=== PATIENT | male | born 1950 | race Caucasian/White ===

== ENCOUNTER 2020-10-04 10:55 | Emergency (ER) | payer MEDICARE, OTHER ==
--- NOTE | 2020-10-04 11:22 | EDM.PDOC ---
ED HPI GENERAL MEDICAL PROBLEM - General Chief Complaint: Neuro Symptoms/Deficits Stated Complaint: HEADACHE Time Seen by Provider: 10/04/20 10:55 - History of Present Illness INITIAL COMMENTS - FREE TEXT/NARRATIVE: 70-year-old male presents the emergency room with headaches. These headaches been going on for couple of months it seems like but have been getting worse over the last couple of weeks. Over the last several days however the patient has had difficulty with ambulation he is had less coordination with difficulty walking. He has some neck discomfort right at the base of the skull seems to be worse on the left side. About an hour prior to arrival here the patient developed some double vision. Double vision seems to be with far objects does not seem to affect him up close he describes seeing 2 cars coming out of him onto roadways. But when the cars passed there was just a single car. The patient has not had problems with double vision in the exam room. The patient cannot identify any weakness right side compared to the left or vice versa in upper or lower extremities. He has not had any change in his speech. The patient just has not been himself he has had no energy over the last several days as well. The patient's had episodes where he has been sweaty yesterday was found to have a fever of 103.4 but he had just come inside after moving hay. Headache Pain Score (Numeric/FACES): 8 - Related Data Allergies Allergy/AdvReac Type Severity Reaction Status Date / Time No Known Allergies Allergy Verified 10/04/20 11:14 Home Meds: Home Meds Benazepril [Lotensin] 20 mg PO QAM 10/04/20 [History] Gabapentin [Neurontin] 300 mg PO BEDTIME 10/04/20 [History] Ibuprofen [Advil] 200 mg PO DAILY PRN 10/04/20 [History] Metoprolol Succinate 25 mg PO QAM 10/04/20 [History] Pramipexole [Mirapex] 0.5 mg PO BEDTIME 10/04/20 [History] amLODIPine [Norvasc] 2.5 mg PO QAM 10/04/20 [History] diazePAM [Valium] 2 mg PO BEDTIME #15 tab 10/04/20 [Rx] ED ROS GENERAL - Review of Systems Review Of Systems: See Below Constitutional: Reports: Weakness, Fatigue, Diaphoresis HEENT: Reports: No Symptoms Respiratory: Reports: No Symptoms Cardiovascular: Reports: No Symptoms Endocrine: Reports: Fatigue GI/Abdominal: Reports: No Symptoms : Reports: No Symptoms Musculoskeletal: Reports: Neck Pain Skin: Reports: No Symptoms Neurological: Reports: Confusion, Headache, Numbness. Denies: Seizure, Syncope Psychiatric: Reports: No Symptoms Hematologic/Lymphatic: Reports: No Symptoms Immunologic: Reports: No Symptoms ED EXAM, NEURO - Physical Exam Exam: See Below Exam Limited By: No Limitations General Appearance: Alert, No Apparent Distress Eye Exam: Bilateral Eye: EOMI, Normal Inspection, PERRL Ears: Normal External Exam, Normal Canal, Hearing Grossly Normal, Normal TMs Nose: Normal Inspection, Normal Mucosa, No Blood Throat/Mouth: Normal Inspection, Normal Lips, Normal Teeth, Normal Gums, Normal Oropharynx, Normal Voice, No Airway Compromise Head Exam: Atraumatic, Normocephalic Neck: Normal Inspection, Supple, Non-Tender, Full Range of Motion, Other (He has some muscle tightness at the base of the skull in the left paraspinous muscle insertion area). No: Lymphadenopathy (L), Lymphadenopathy (R), Tender Midline Respiratory/Chest: No Respiratory Distress, Lungs Clear, Normal Breath Sounds Cardiovascular: Regular Rate, Rhythm, No Edema, No Murmur GI/Abdominal: Normal Bowel Sounds, Soft, Non-Tender Neurological: Alert, Normal Mood/Affect, Normal Dorsiflexion, CN II-XII Intact, No Motor/Sensory Deficits, Other (Radial nerves II through XII grossly intact all muscle groups are equal and appropriate in the upper and lower extremities bilaterally. Deep tendon reflexes at the brachial radialis are equal and appropriate bilaterally) Back Exam: Normal Inspection. No: CVA Tenderness (L), CVA Tenderness (R) Extremities: Normal Inspection, Normal Range of Motion, Non-Tender, No Pedal Edema Psychiatric: Normal Affect, Normal Mood #1 Interpretation EKG Date: 10/04/20 Rhythm: NSR [place]: Normal P-Wave: Present QRS: Other (Fairly normal QRS borderline Q waves in leads III and aVF, early transition) ST-T: Normal QT: Normal Comparison: NA - No Prior EKG EKG Interpretation Comments: Abnormal EKG Course - Vital Signs Last Recorded V/S: Last Vital Signs Temp 37.3 C 10/04/20 11:14 Pulse 78 10/04/20 11:14 Resp 14 10/04/20 11:14 BP 136/75 10/04/20 11:14 Pulse Ox 98 10/04/20 11:14 - Orders/Labs/Meds Orders: Active Orders 24 hr Category Date Time Status EKG Documentation Completion [RC] STAT Care 10/04/20 11:17 Active Sodium Chloride 0.9% [Saline Flush] Med 10/04/20 15:15 Active 20 ml FLUSH ASDIRECTED Medication Orders Sodium Chloride (Sodium Chloride 0.9% 10 Ml Syringe) 20 ml FLUSH ASDIRECTED VIKTOR Last Admin: 10/04/20 15:22 Dose: 20 ml Documented by: RADHA Labs: Laboratory Tests 10/04/20 10/04/20 10/04/20 Range/Units 11:10 11:10 11:10 WBC 4.55 (4.23-9.07) K/mm3 RBC 5.00 (4.63-6.08) M/mm3 Hgb 15.5 (13.7-17.5) gm/dl Hct 46.8 (40.1-51.0) % MCV 93.6 H (79.0-92.2) fl MCH 31.0 (25.7-32.2) pg MCHC 33.1 (32.2-35.5) g/dl RDW Std Deviation 44.4 H (35.1-43.9) fL Plt Count 119 L (163-337) K/mm3 MPV 10.0 (9.4-12.3) fl Neutrophils % (Manual) 43 (40-60) % Band Neutrophils % 0 (0-10) % Lymphocytes % (Manual) 34 (20-40) % Atypical Lymphs % 5 % Monocytes % (Manual) 16 H (2-10) % Eosinophils % (Manual) 2 (0.8-7.0) % Basophils % (Manual) 0 L (0.2-1.2) Platelet Estimate Decreased Plt Morphology Comment Normal RBC Morph Comment Normal PT 11.1 (9.7-12.0) SECONDS INR 1.04 APTT 35.1 H (21.7-31.4) SECONDS Sodium 139 (136-145) mEq/L Potassium 4.3 (3.5-5.1) mEq/L Chloride 102 (98-107) mEq/L Carbon Dioxide 29 (21-32) mEq/L Anion Gap 12.3 (5-15) BUN 18 (7-18) mg/dL Creatinine 1.3 (0.7-1.3) mg/dL Est Cr Clr Drug Dosing 48.73 mL/min Estimated GFR (MDRD) 54 (>60) mL/min BUN/Creatinine Ratio 13.8 L (14-18) Glucose 101 H (70-99) mg/dL POC Glucose (70-99) mg/dL Calcium 8.5 (8.5-10.1) mg/dL Total Bilirubin 0.5 (0.2-1.0) mg/dL AST 67 H (15-37) U/L ALT 79 H (16-63) U/L Alkaline Phosphatase 102 (46-116) U/L Troponin I < 0.017 (0.00-0.056) ng/mL Total Protein 7.2 (6.4-8.2) g/dl Albumin 3.4 (3.4-5.0) g/dl Globulin 3.8 gm/dL Albumin/Globulin Ratio 0.9 L (1-2) TSH 3rd Generation (0.358-3.74) uIU/mL SARS-CoV-2 RNA (ALEJANDRO) (NEGATIVE) 10/04/20 10/04/20 10/04/20 Range/Units 11:10 11:11 11:43 WBC (4.23-9.07) K/mm3 RBC (4.63-6.08) M/mm3 Hgb (13.7-17.5) gm/dl Hct (40.1-51.0) % MCV (79.0-92.2) fl MCH (25.7-32.2) pg MCHC (32.2-35.5) g/dl RDW Std Deviation (35.1-43.9) fL Plt Count (163-337) K/mm3 MPV (9.4-12.3) fl Neutrophils % (Manual) (40-60) % Band Neutrophils % (0-10) % Lymphocytes % (Manual) (20-40) % Atypical Lymphs % % Monocytes % (Manual) (2-10) % Eosinophils % (Manual) (0.8-7.0) % Basophils % (Manual) (0.2-1.2) Platelet Estimate Plt Morphology Comment RBC Morph Comment PT (9.7-12.0) SECONDS INR APTT (21.7-31.4) SECONDS Sodium (136-145) mEq/L Potassium (3.5-5.1) mEq/L Chloride (98-107) mEq/L Carbon Dioxide (21-32) mEq/L Anion Gap (5-15) BUN (7-18) mg/dL Creatinine (0.7-1.3) mg/dL Est Cr Clr Drug Dosing mL/min Estimated GFR (MDRD) (>60) mL/min BUN/Creatinine Ratio (14-18) Glucose (70-99) mg/dL POC Glucose 82 (70-99) mg/dL Calcium (8.5-10.1) mg/dL Total Bilirubin (0.2-1.0) mg/dL AST (15-37) U/L ALT (16-63) U/L Alkaline Phosphatase (46-116) U/L Troponin I (0.00-0.056) ng/mL Total Protein (6.4-8.2) g/dl Albumin (3.4-5.0) g/dl Globulin gm/dL Albumin/Globulin Ratio (1-2) TSH 3rd Generation 1.422 (0.358-3.74) uIU/mL SARS-CoV-2 RNA (ALEJANDRO) Positive H (NEGATIVE) Meds: Medications Generic Name Dose Route Start Last Admin Trade Name Freq PRN Reason Stop Dose Admin Sodium Chloride 20 ml 10/04/20 15:15 10/04/20 15:22 Sodium Chloride 0.9% 10 Ml Syringe FLUSH 20 ml ASDIRECTED VIKTOR Administration Discontinued Medications Generic Name Dose Route Start Last Admin Trade Name Freq PRN Reason Stop Dose Admin Hydrocodone Bitart/Acetaminophen 1 tab 10/04/20 13:09 10/04/20 13:20 Acetaminophen/Hydrocodone 325-10 Mg Tab PO 10/04/20 13:10 1 tab ONETIME ONE Administration Gadobenate Dimeglumine 17 ml 10/04/20 15:02 10/04/20 15:22 Gadobenate Dimeglumine 529 Mg/Ml 20 Ml Sdv IVPUSH 10/04/20 15:03 17 ml ONETIME ONE Administration - Re-Assessments/Exams Free Text/Narrative Re-Assessment/Exam: 10/04/20 12:21 NIH stroke score of [address] no acute intracranial changes mild mucosal thickening within the ethmoid sinuses. We are awaiting MRI that cannot be done until about 130. 10/04/20 13:15 Patient's Covid came back positive. I did discuss situation with Dr. Paula, neurologist at [facility] in [place] he recommends following through with the MRI with and without and checking an MRV to exclude venous thrombosis with positive Covid status. Discussed all this with the patient. And discussed the possibility of monoclonal antibody therapy. He will think about it. 10/04/20 16:23 Patient would like to hold off on Regeneron at this time. MRI of the brain does not show any acute stroke or TIA findings there is minimal areas of increased signal within portions of the periventricular and subcortical white matter which most likely represent minimal small vessel ischemic demyelination change. MRI venogram is negative. At this point we discussed the pros and cons of staying in the hospital versus discharge and he would like to be discharged home. Departure - Departure Time of Disposition: 16:24 Disposition: Home, Self-Care 01 Clinical Impression: COVID-19, Weakness, Tension headache - Discharge Information Prescriptions: diazePAM [Valium] 2 mg PO BEDTIME #15 tab Instructions: COVID-19 Frequently Asked Questions, COVID-19, Weakness, [id number] Referrals: PCP,Not In Area [Primary Care Provider] - Forms: ED Department Discharge Additional Instructions: Return to the emergency room with any questions problems or worsening symptoms. You were found to be Covid positive you need to be self isolated for the next week. For your tension headache she was started on Valium. Take this 1 hour before bedtime. Because of it having increased sedation effects in combination with the gabapentin were starting a very light dose 2 mg. If you tolerate the 2 mg and you are not getting adequate improvement you may increase to 2 tablets 1 hour before bedtime. Sepsis Event Note (ED) - Focused Exam Vital Signs: Vital Signs Temp Pulse Resp BP Pulse Ox 10/04/20 11:14 37.3 C 78 14 136/75 98 - My Orders Last 24 Hours: My Active Orders 10/04/20 11:17 EKG Documentation Completion [RC] STAT 10/04/20 15:15 Sodium Chloride 0.9% [Saline Flush] 20 ml FLUSH ASDIRECTED - Assessment/Plan Last 24 Hours: My Active Orders 10/04/20 11:17 EKG Documentation Completion [RC] STAT 10/04/20 15:15 Sodium Chloride 0.9% [Saline Flush] 20 ml FLUSH ASDIRECTED
--- NOTE | 2020-10-04 11:36 | CT ---
Head CT Technique: Multiple axial sections through the brain were obtained. Intravenous contrast was not utilized. Reconstructed coronal and sagittal images were obtained. Comparison: No prior intracranial imaging is available. Findings: Ventricles along with basal cisterns and sulci over the convexities are within normal limits for the patient's age. No abnormal parenchymal densities are seen. No evidence of intracranial hemorrhage is seen. No midline shift or mass-effect is seen. Bone window settings were reviewed. Mild mucosal thickening is seen within the ethmoid sinuses. Mastoid sinuses show nothing acute. No acute calvarial abnormality is appreciated. Impression: 1. Minimal sinus findings which are believed to be incidental. 2. Nothing acute is appreciated on noncontrast head CT study. 3. If patient's symptoms warrant further evaluation, consider brain MRI to further evaluate. Diagnostic code #2
[2020-10-04] MEDS ORDERED: Acetaminophen/HYDROcodone 325-10 MG Tab PO ONE (13:09)
[2020-10-04] MEDS ORDERED: Gadobenate Dimeglumine 529 MG/ML 20 ML SDV IVPUSH ONE (15:02)
[2020-10-04] MEDS ORDERED: Sodium Chloride 0.9% 10 ML Syringe FLUSH SCH (15:15)
--- NOTE | 2020-10-04 15:28 | MR ---
MRI venogram Technique: Noncontrast venogram study was obtained of the intracranial veins. Reconstructed MIP images were obtained. Findings: Both transverse sinuses are patent. Superior sagittal sinus is patent. Inferior sagittal sinus is patent. Small cortical veins appear within normal limits. Impression: 1. No abnormality is identified on venogram study of the intracranial veins. Diagnostic code #1
--- NOTE | 2020-10-04 15:45 | MR ---
MRI brain (without and with intravenous contrast) Technique: T1 sagittal; T2, T2 FLAIR, T1 and diffusion axial; T1 and T2 gradient echo coronal; postcontrast T1 axial and postcontrast T1 coronal images were obtained. Comparison: Prior venogram study performed on the same day as well as prior head CT exam performed on the same day. Findings: No acute diffusion abnormalities are seen. Ventricles along with basal cisterns and sulci over the convexities are within normal limits for the patient's age. Normal signal void is seen within the major cerebral arteries within the skull base. Minimal areas of increased signal are scattered within the periventricular and subcortical white matter. This is most likely due to minimal small vessel ischemic demyelination change. No other abnormal signal is seen within the brain parenchyma. No abnormal enhancement is seen. Impression: 1. Minimal areas of increased signal within portions of the periventricular and subcortical white matter which most likely represents minimal small vessel ischemic demyelination change. 2. Other portions of the MRI study of the brain appear within normal limits. There is specifically no evidence of abnormal diffusion or abnormal enhancement. Diagnostic code #2
== END 2020-10-04 17:00 | disposition home or self-care (01) ==
LOC: JD.ED 10:55
DX: U07.1 COVID-19 (principal); G44.209 Tension-type headache, unspecified, not intractable; R94.31 Abnormal electrocardiogram [ECG] [EKG]; Z79.899 Other long term (current) drug therapy
CPT/HCPCS: 36415; 70450; 70544; 70553; 80053; 82947; 84443; 84484; 85007; 85027; 85610; 85730; 93005; 99284; A9270; A9577; U0002; 93010

== ENCOUNTER 2020-10-07 06:56 | Inpatient (IN) | payer MEDICARE, OTHER ==
[2020-10-07] MEDS ORDERED: Sodium Chloride 0.9% 10 ML Syringe FLUSH PRN (07:47)
[2020-10-07] MEDS ORDERED: Metoclopramide 10 MG/2 ML SDV IVPUSH ONE (07:47)
[2020-10-07] MEDS ORDERED: diphenhydrAMINE 50 MG/ML SDV IVPUSH ONE (07:49)
[2020-10-07] MEDS ORDERED: Ketorolac 30 MG/ML SDV IVPUSH ONE (07:49)
--- NOTE | 2020-10-07 07:57 | EDM.PDOC ---
ED HPI GENERAL MEDICAL PROBLEM - General Chief Complaint: Headache Stated Complaint: COVID +/HEADACHE Time Seen by Provider: 10/07/20 07:16 Source of Information: Reports: Patient History Limitations: Reports: No Limitations - History of Present Illness INITIAL COMMENTS - FREE TEXT/NARRATIVE: The patient presents with a headache. He says this has been an ongoing problems for about 5 months. The headaches have been worse over the past few days and a few days ago he was off balance and had some confusion. He was seen here [address] of his head was done and then the ER provider called [facility] and talked with the neurologist and he recommended a MRI of his brain and MRA. That all looked good. He was found to be COVID positive. He had a fever or 103 at home. He has some shortness of breath and cough. He also has nausea and no appetite. He has generalized weakness and fatigue. He has a history of hypertension. He has been to see his doctor and chiropractor for these headaches and nothing is helping. Onset: Gradual Duration: Week(s): Location: Reports: Head Quality: Reports: Sharp Severity: Severe Improves with: Reports: None Worsens with: Reports: None Associated Symptoms: Reports: Cough, Fever/Chills, Headaches, Nausea/Vomiting. Denies: Chest Pain, Shortness of Breath Headache Pain Score (Numeric/FACES): 5 - Related Data Allergies Allergy/AdvReac Type Severity Reaction Status Date / Time No Known Allergies Allergy Verified 10/04/20 11:14 Home Meds: Home Meds Benazepril [Lotensin] 20 mg PO QAM 10/04/20 [History] Gabapentin [Neurontin] 300 mg PO BEDTIME 10/04/20 [History] Ibuprofen [Advil] 200 mg PO DAILY PRN 10/04/20 [History] Metoprolol Succinate 25 mg PO QAM 10/04/20 [History] Pramipexole [Mirapex] 0.5 mg PO BEDTIME 10/04/20 [History] amLODIPine [Norvasc] 2.5 mg PO QAM 10/04/20 [History] diazePAM [Valium] 2 mg PO BEDTIME #15 tab 10/04/20 [Rx] Past Medical History Cardiovascular History: Reports: Hypertension Respiratory History: Reports: Other (See Below) Other Respiratory History: +) COVID Genitourinary History: Reports: Renal Calculus Musculoskeletal History: Reports: Arthritis Neurological History: Reports: Headaches, Chronic, Head Trauma, Migraines - Infectious Disease History Infectious Disease History: Reports: Mumps, Novel Coronavirus - Past Surgical History GI Surgical History: Reports: Appendectomy, Cholecystectomy Male Surgical History: Reports: Lithotripsy ([facility]) Musculoskeletal Surgical History: Reports: Knee Replacement Social & Family History - Family History Family Medical History: No Pertinent Family History - Tobacco Use Tobacco Use Status *Q: Never Tobacco User Second Hand Smoke Exposure: No - Caffeine Use Caffeine Use: Reports: Coffee - Recreational Drug Use Recreational Drug Use: No ED ROS GENERAL - Review of Systems Review Of Systems: See Below Constitutional: Reports: Fever, Chills, Malaise, Weakness, Fatigue HEENT: Reports: No Symptoms Respiratory: Reports: Shortness of Breath, Cough Cardiovascular: Reports: No Symptoms Endocrine: Reports: Fatigue GI/Abdominal: Reports: Nausea. Denies: Abdominal Pain, Diarrhea, Vomiting : Reports: No Symptoms Musculoskeletal: Reports: No Symptoms - Physical Exam Exam: See Below Exam Limited By: No Limitations General Appearance: Alert, No Apparent Distress Ears: Normal External Exam Nose: Normal Inspection Head Exam: Atraumatic, Normocephalic Neck: Normal Inspection Respiratory/Chest: No Respiratory Distress, Lungs Clear, Normal Breath Sounds Cardiovascular: Regular Rate, Rhythm, No Edema, No Murmur GI/Abdominal: Soft, Non-Tender, No Organomegaly, No Mass Neuro Exam (Abbreviated): Alert, Oriented, No Motor/Sensory Deficits #1 Interpretation EKG Date: 10/07/20 Time: 07:24 Rhythm: NSR Rate (Beats/Min): 71 [place]: LAD-Left [place] Deviation P-Wave: Present QRS: Normal ST-T: Normal QT: Normal EKG Interpretation Comments: Q waves in the inferior leads Course - Vital Signs Last Recorded V/S: Last Vital Signs Temp 97.8 F 10/07/20 09:15 Pulse 84 10/07/20 09:15 Resp 24 H 10/07/20 09:15 BP 115/66 10/07/20 09:15 Pulse Ox 95 10/07/20 09:15 - Orders/Labs/Meds Orders: Active Orders 24 hr Category Date Time Status Cardiac Monitoring [RC] . DIRECTED Care 10/07/20 07:47 Active EKG 12 Lead [EKG Documentation Completion] [RC] STAT Care 10/07/20 07:25 Active Oxygen Therapy [RC] PRN Care 10/07/20 07:47 Active Peripheral IV Care [RC] . DIRECTED Care 10/07/20 07:48 Active Chest 1V Frontal [CR] Stat Exams 10/07/20 07:48 Taken CULTURE BLOOD [BC] Stat Lab 10/07/20 08:20 Received CULTURE BLOOD [BC] Stat Lab 10/07/20 08:30 Received HEPATIC FUNCTION PANEL,HFP [CHEM] DAILY Lab 10/08/20 10:30 Ordered HEPATIC FUNCTION PANEL,HFP [CHEM] DAILY Lab 10/09/20 10:30 Ordered HEPATIC FUNCTION PANEL,HFP [CHEM] DAILY Lab 10/10/20 10:30 Ordered HEPATIC FUNCTION PANEL,HFP [CHEM] DAILY Lab 10/11/20 10:30 Ordered HEPATIC FUNCTION PANEL,HFP [CHEM] Stat Lab 10/07/20 10:20 Ordered HYDROmorphone [Dilaudid] Med 10/07/20 10:20 Once 0.5 mg IVPUSH ONETIME ONE Remdesivir 200 mg Med 10/07/20 10:20 Ordered Sodium Chloride 0.9% [Normal Saline] 250 ml IV ONETIME Sodium Chloride 0.9% [Normal Saline] 1,000 ml Med 10/07/20 08:45 Active IV ASDIRECTED Sodium Chloride 0.9% [Saline Flush] Med 10/07/20 07:47 Active 10 ml FLUSH ASDIRECTED PRN dexAMETHasone [Decadron] Med 10/07/20 10:20 Once 6 mg IVPUSH ONETIME ONE Blood Culture x2 Reflex Set [OM.PC] Stat Oth 10/07/20 08:38 Ordered ED Antiemetic Medication Reflex [OM.PC] Stat Oth 10/07/20 07:48 Ordered Peripheral IV Insertion Adult [OM.PC] Stat Oth 10/07/20 07:47 Ordered Medication Orders Sodium Chloride (Normal Saline) 1,000 mls @ 150 mls/hr IV ASDIRECTED VIKTOR Last Admin: 10/07/20 09:00 Dose: 150 mls/hr Documented by: [place]ER[place] Sodium Chloride (Sodium Chloride 0.9% 10 Ml Syringe) 10 ml FLUSH ASDIRECTED PRN PRN Reason: Keep Vein Open Last Admin: 10/07/20 08:26 Dose: 10 ml Documented by: [facility] Labs: Laboratory Tests 10/07/20 10/07/20 10/07/20 Range/Units 08:20 08:20 08:20 WBC 4.65 (4.23-9.07) K/mm3 RBC 5.04 (4.63-6.08) M/mm3 Hgb 15.5 (13.7-17.5) gm/dl Hct 46.8 (40.1-51.0) % MCV 92.9 H (79.0-92.2) fl MCH 30.8 (25.7-32.2) pg MCHC 33.1 (32.2-35.5) g/dl RDW Std Deviation 43.8 (35.1-43.9) fL Plt Count 125 L (163-337) K/mm3 MPV 10.1 (9.4-12.3) fl Neut % (Auto) 71.6 H (34.0-67.9) % Lymph % (Auto) 18.1 L (21.8-53.1) % [place] % (Auto) 9.9 (5.3-12.2) % Eos % (Auto) 0 L (0.8-7.0) Baso % (Auto) 0.2 (0.1-1.2) % Neut # (Auto) 3.33 (1.78-5.38) K/mm3 Lymph # (Auto) 0.84 L (1.32-3.57) K/mm3 [place] # (Auto) 0.46 (0.30-0.82) K/mm3 Eos # (Auto) 0.00 L (0.04-0.54) K/mm3 Baso # (Auto) 0.01 (0.01-0.08) K/mm3 PT 11.3 (9.7-12.0) SECONDS INR 1.06 APTT 35.0 H (21.7-31.4) SECONDS D-Dimer, Quantitative 1.33 H (0.19-0.50) mg/L Sodium 137 (136-145) mEq/L Potassium 4.4 (3.5-5.1) mEq/L Chloride 99 (98-107) mEq/L Carbon Dioxide 29 (21-32) mEq/L Anion Gap 13.4 (5-15) BUN 19 H (7-18) mg/dL Creatinine 1.3 (0.7-1.3) mg/dL Est Cr Clr Drug Dosing 48.73 mL/min Estimated GFR (MDRD) 54 (>60) mL/min BUN/Creatinine Ratio 14.6 (14-18) Glucose 118 H (70-99) mg/dL Lactic Acid (0.4-2.0) mmol/L Calcium 8.7 (8.5-10.1) mg/dL Ferritin (26-388) ng/ml Total Bilirubin 0.6 (0.2-1.0) mg/dL AST 72 H (15-37) U/L ALT 71 H (16-63) U/L Alkaline Phosphatase 123 H (46-116) U/L Lactate Dehydrogenase 435 H (85-227) U/L Troponin I < 0.017 (0.00-0.056) ng/mL C-Reactive Protein 19.5 H* (<1.0) mg/dL Total Protein 7.2 (6.4-8.2) g/dl Albumin 3.2 L (3.4-5.0) g/dl Globulin 4.0 gm/dL Albumin/Globulin Ratio 0.8 L (1-2) 10/07/20 10/07/20 Range/Units 08:20 08:20 WBC (4.23-9.07) K/mm3 RBC (4.63-6.08) M/mm3 Hgb (13.7-17.5) gm/dl Hct (40.1-51.0) % MCV (79.0-92.2) fl MCH (25.7-32.2) pg MCHC (32.2-35.5) g/dl RDW Std Deviation (35.1-43.9) fL Plt Count (163-337) K/mm3 MPV (9.4-12.3) fl Neut % (Auto) (34.0-67.9) % Lymph % (Auto) (21.8-53.1) % [place] % (Auto) (5.3-12.2) % Eos % (Auto) (0.8-7.0) Baso % (Auto) (0.1-1.2) % Neut # (Auto) (1.78-5.38) K/mm3 Lymph # (Auto) (1.32-3.57) K/mm3 [place] # (Auto) (0.30-0.82) K/mm3 Eos # (Auto) (0.04-0.54) K/mm3 Baso # (Auto) (0.01-0.08) K/mm3 PT (9.7-12.0) SECONDS INR APTT (21.7-31.4) SECONDS D-Dimer, Quantitative (0.19-0.50) mg/L Sodium (136-145) mEq/L Potassium (3.5-5.1) mEq/L Chloride (98-107) mEq/L Carbon Dioxide (21-32) mEq/L Anion Gap (5-15) BUN (7-18) mg/dL Creatinine (0.7-1.3) mg/dL Est Cr Clr Drug Dosing mL/min Estimated GFR (MDRD) (>60) mL/min BUN/Creatinine Ratio (14-18) Glucose (70-99) mg/dL Lactic Acid 1.1 (0.4-2.0) mmol/L Calcium (8.5-10.1) mg/dL Ferritin 908 H (26-388) ng/ml Total Bilirubin (0.2-1.0) mg/dL AST (15-37) U/L ALT (16-63) U/L Alkaline Phosphatase (46-116) U/L Lactate Dehydrogenase (85-227) U/L Troponin I (0.00-0.056) ng/mL C-Reactive Protein (<1.0) mg/dL Total Protein (6.4-8.2) g/dl Albumin (3.4-5.0) g/dl Globulin gm/dL Albumin/Globulin Ratio (1-2) Meds: Medications Generic Name Dose Route Start Last Admin Trade Name Freq PRN Reason Stop Dose Admin Sodium Chloride 1,000 mls @ 150 mls/hr 10/07/20 08:45 10/07/20 09:00 Normal Saline IV 150 mls/hr ASDIRECTED VIKTOR Administration Sodium Chloride 10 ml 10/07/20 07:47 10/07/20 08:26 Sodium Chloride 0.9% 10 Ml Syringe FLUSH 10 ml ASDIRECTED PRN Administration Keep Vein Open Discontinued Medications Generic Name Dose Route Start Last Admin Trade Name Freq PRN Reason Stop Dose Admin Diphenhydramine HCl 50 mg 10/07/20 07:49 10/07/20 08:26 Diphenhydramine 50 Mg/Ml Sdv IVPUSH 10/07/20 07:50 50 mg ONETIME ONE Administration Ketorolac Tromethamine 30 mg 10/07/20 07:49 10/07/20 08:24 Ketorolac 30 Mg/Ml Sdv IVPUSH 10/07/20 07:50 30 mg ONETIME ONE Administration Metoclopramide HCl 10 mg 10/07/20 07:47 10/07/20 08:22 Metoclopramide 10 Mg/2 Ml Sdv IVPUSH 10/07/20 07:48 10 mg ONETIME ONE Administration - Re-Assessments/Exams Free Text/Narrative Re-Assessment/Exam: 10/07/20 08:32 I ordered oxygen. His oxygen saturations were 89%. I also ordered an IV saline lock, toradol 30mg IV, reglan 10mg IV, benadryl 50mg IV, EKG, CXR, labs and a CT of his head. His EKG shows a NSR with no acute changes. 10/07/20 10:22 His CXR shows an infiltrate in the left lung. The CT of his head shows minimal sinus findings which are likely incidental. Nothing acute is appreciated on noncontrast head CT exam. His CBC looks good. His D-dimer is elevated at 1.33. His lactic acid is normal. His ferritin is elevated at 908. His AST is elevated at 72. His ALT is elevated at 71. His alk phos is elevated at 123. His LDH is elevated at 435. His troponin is negative. His CRP is elevated at 19.5. It appears he has COVID 19 pneumonia with hypoxia. I feel he needs to be admitted. I talked with Dr Wheeler and he accepted the patient. I ordered remdesivir 200mg, dexamethasone 6mg IV and dilaudid 0.5mg IV. His headache was starting to come back. Departure - Departure Time of Disposition: 10:40 Disposition: Admitted As Inpatient 65 Condition: Poor Clinical Impression: Hypoxia, Pneumonia due to COVID-19 virus, COVID Headache Qualifiers: Headache type: other headache syndrome Qualified Code(s): G44.89 - Other headache syndrome - Discharge Information Instructions: COVID-19 Referrals: PCP,Not In Area [Primary Care Provider] - Forms: ED Department Discharge Sepsis Event Note (ED) - Evaluation Sepsis Screening Result: No Definite Risk - Focused Exam Vital Signs: Vital Signs Temp Pulse Resp BP Pulse Ox 10/07/20 09:15 97.8 F 84 24 H 115/66 95 10/07/20 08:35 76 24 H 160/83 H 95 10/07/20 07:15 98.8 F 72 32 H 240/218 H 89 L - My Orders Last 24 Hours: My Active Orders 10/07/20 07:25 EKG 12 Lead [EKG Documentation Completion] [RC] STAT 10/07/20 07:47 Cardiac Monitoring [RC] . DIRECTED Oxygen Therapy [RC] PRN Sodium Chloride 0.9% [Saline Flush] 10 ml FLUSH ASDIRECTED PRN Peripheral IV Insertion Adult [OM.PC] Stat 10/07/20 07:48 Peripheral IV Care [RC] . DIRECTED Chest 1V Frontal [CR] Stat ED Antiemetic Medication Reflex [OM.PC] Stat 10/07/20 08:20 CULTURE BLOOD [BC] Stat 10/07/20 08:30 CULTURE BLOOD [BC] Stat 10/07/20 08:38 Blood Culture x2 Reflex Set [OM.PC] Stat 10/07/20 08:45 Sodium Chloride 0.9% [Normal Saline] 1,000 ml IV ASDIRECTED 10/07/20 10:20 HEPATIC FUNCTION PANEL,HFP [CHEM] Stat HYDROmorphone [Dilaudid] 0.5 mg IVPUSH ONETIME ONE Remdesivir 200 mg Sodium Chloride 0.9% [Normal Saline] 250 ml IV ONETIME dexAMETHasone [Decadron] 6 mg IVPUSH ONETIME ONE 10/08/20 10:30 HEPATIC FUNCTION PANEL,HFP [CHEM] DAILY 10/09/20 10:30 HEPATIC FUNCTION PANEL,HFP [CHEM] DAILY 10/10/20 10:30 HEPATIC FUNCTION PANEL,HFP [CHEM] DAILY 10/11/20 10:30 HEPATIC FUNCTION PANEL,HFP [CHEM] DAILY - Assessment/Plan Last 24 Hours: My Active Orders 10/07/20 07:25 EKG 12 Lead [EKG Documentation Completion] [RC] STAT 10/07/20 07:47 Cardiac Monitoring [RC] . DIRECTED Oxygen Therapy [RC] PRN Sodium Chloride 0.9% [Saline Flush] 10 ml FLUSH ASDIRECTED PRN Peripheral IV Insertion Adult [OM.PC] Stat 10/07/20 07:48 Peripheral IV Care [RC] . DIRECTED Chest 1V Frontal [CR] Stat ED Antiemetic Medication Reflex [OM.PC] Stat 10/07/20 08:20 CULTURE BLOOD [BC] Stat 10/07/20 08:30 CULTURE BLOOD [BC] Stat 10/07/20 08:38 Blood Culture x2 Reflex Set [OM.PC] Stat 10/07/20 08:45 Sodium Chloride 0.9% [Normal Saline] 1,000 ml IV ASDIRECTED 10/07/20 10:20 HEPATIC FUNCTION PANEL,HFP [CHEM] Stat HYDROmorphone [Dilaudid] 0.5 mg IVPUSH ONETIME ONE Remdesivir 200 mg Sodium Chloride 0.9% [Normal Saline] 250 ml IV ONETIME dexAMETHasone [Decadron] 6 mg IVPUSH ONETIME ONE 10/08/20 10:30 HEPATIC FUNCTION PANEL,HFP [CHEM] DAILY 10/09/20 10:30 HEPATIC FUNCTION PANEL,HFP [CHEM] DAILY 10/10/20 10:30 HEPATIC FUNCTION PANEL,HFP [CHEM] DAILY 10/11/20 10:30 HEPATIC FUNCTION PANEL,HFP [CHEM] DAILY
--- NOTE | 2020-10-07 08:29 | CT ---
Head CT Technique: Multiple axial sections through the brain were obtained. Intravenous contrast was not utilized. Reconstructed coronal and sagittal images were obtained. Comparison: Prior MRI brain study of 10/04/[address] exam of 07/05/20. Findings: Ventricles along with basal cisterns and sulci over the convexities are within normal limits for the patient's age. No evidence of intracranial hemorrhage is seen. No midline shift or mass-effect is seen. Bone window settings were reviewed. No acute calvarial abnormality is appreciated. Right mastoid sinus shows minimal mucosal thickening inferiorly which is most likely incidental. Very slight mucosal thickening is seen within the left maxillary sinus which is also felt to be incidental. Impression: 1. Minimal sinus findings which are likely incidental. 2. Nothing acute is appreciated on noncontrast head CT exam. Diagnostic code #2
[2020-10-07] MEDS ORDERED: Sodium Chloride 0.9% 1,000 ML IV SCH ×2 (08:45→11:00)
[2020-10-07] MEDS ORDERED: Dexamethasone 4 MG/ML SDV IVPUSH ONE (10:20)
[2020-10-07] MEDS ORDERED: HYDROmorphone 0.5 MG/0.5 ML Syringe IVPUSH ONE (10:20)
[2020-10-07] MEDS ORDERED: REMDESIVIR 200 MG in Sodium Chloride 0.9% 250 ML IV ONE ×2 (10:20→11:00)
--- NOTE | 2020-10-07 10:22 | CR ---
Chest: Portable view of the chest was obtained. Comparison: No prior chest imaging is available. Patchy areas of increased density are seen within the left upper and left lower lung. Mild density is noted within the right midlung. Heart size is within normal limits for portable technique. Tortuous thoracic aorta is seen. Degenerative change is seen within both shoulders. Prior left shoulder surgery is noted. Minimal scoliosis is noted within the spine with scattered degenerative change within the spine. Impression: 1. Patchy areas of increased density within the left upper and left lower lung as well as right midlung presumably due to pneumonia. 2. Other findings believed to be chronic as noted above. Diagnostic code #3
--- NOTE | 2020-10-07 10:51 | PCM.HP.2 ---
H&P History of Present Illness - General Date of Service: 10/07/20 Admit Problem/Dx: COVID-19 pneumonia. Source of Information: Patient History Limitations: Reports: No Limitations - History of Present Illness Initial Comments - Free Text/Narative: The patient is a 70-year-old gentleman who had presented to the emergency department primarily out of concern for severe headache. Patient says that he has had a frontal to bilateral parietal headache for at least the past 5 months. He was also reported to have some confusion. The patient has had a complete work-up for the headache. He was wanting to go to neurology however he also got sick 3 days ago and was diagnosed with COVID-19 pneumonia. The patient has had low oxygen saturations and he has been on oxygen in the emergency department. Patient does not use oxygen normally at home. He has had no specific aggravating or relieving factors for the pneumonia however his the counter medications help somewhat. The patient has denied any fever or chills. He has denied a cough. Patient has had some nausea and he has not taken any of his h ome medications. The patient has not been vaccinated for COVID-19. The patient has a chronic history of neuropathy and hypertension. Onset of Symptoms: Reports: Gradual Duration of Symptoms: Reports: Week(s): Location: Reports: Head Quality: Reports: Ache, Stabbing Severity: Moderate Improves with: Reports: Medication Worsens with: Reports: None Associated Symptoms: Reports: Diaphoresis, Headaches Headache Pain Score (Numeric/FACES): 5 - Related Data Allergies/Adverse Reactions: Allergies Allergy/AdvReac Type Severity Reaction Status Date / Time No Known Allergies Allergy Verified 10/07/20 11:08 Home Medications: Home Meds Benazepril [Lotensin] 20 mg PO QAM 10/04/20 [History] Gabapentin [Neurontin] 300 mg PO BEDTIME 10/04/20 [History] Ibuprofen [Advil] 200 mg PO DAILY PRN 10/04/20 [History] Metoprolol Succinate 25 mg PO QAM 10/04/20 [History] Pramipexole [Mirapex] 0.5 mg PO BEDTIME 10/04/20 [History] amLODIPine [Norvasc] 2.5 mg PO QAM 10/04/20 [History] diazePAM [Valium] 2 mg PO BEDTIME #15 tab 10/04/20 [Rx] Multivitamin 1 tab PO DAILY 10/07/20 [History] SUMAtriptan succinate [Imitrex] 100 mg PO ASDIRECTED PRN 10/07/20 [History] Past Medical History HEENT History: Reports: Head Cardiovascular History: Reports: Hypertension Respiratory History: Reports: Other (See Below) Other Respiratory History: +) COVID Gastrointestinal History: Reports: None Genitourinary History: Reports: Renal Calculus Musculoskeletal History: Reports: Arthritis Neurological History: Reports: Headaches, Chronic, Head Trauma, Migraines Psychiatric History: Reports: None Endocrine/Metabolic History: Reports: None Hematologic History: Reports: None - Infectious Disease History Infectious Disease History: Reports: Mumps, Novel Coronavirus - Past Surgical History GI Surgical History: Reports: Appendectomy, Cholecystectomy Male Surgical History: Reports: Lithotripsy ([facility]) Musculoskeletal Surgical History: Reports: Knee Replacement Social & Family History - Family History Family Medical History: No Pertinent Family History - Tobacco Use Tobacco Use Status *Q: Never Tobacco User Second Hand Smoke Exposure: No - Caffeine Use Caffeine Use: Reports: Coffee - Recreational Drug Use Recreational Drug Use: No - Living Situation & Occupation Living situation: Reports: , with Spouse Occupation: Retired H&P Review of Systems - Review of Systems: Review Of Systems: See Below General: Reports: No Symptoms HEENT: Reports: Headaches Pulmonary: Reports: Shortness of Breath Cardiovascular: Reports: No Symptoms Gastrointestinal: Reports: Nausea. Denies: Vomiting Genitourinary: Reports: No Symptoms Musculoskeletal: Reports: No Symptoms Skin: Reports: No Symptoms Psychiatric: Reports: No Symptoms Neurological: Reports: Headache (Chronic) Hematologic/Lymphatic: Reports: No Symptoms Immunologic: Reports: No Symptoms Exam - Exam Exam: See Below - Vital Signs Vital Signs: Last Vital Signs Temp 36.6 C 10/07/20 09:15 Pulse 84 10/07/20 09:15 Resp 24 H 10/07/20 09:15 BP 115/66 10/07/20 09:15 Pulse Ox 95 10/07/20 09:15 Weight: 83.915 kg - Exam Quality Assessment: Supplemental Oxygen, DVT Prophylaxis General: Alert, Oriented, Cooperative, Mild Distress HEENT: Conjunctiva Clear, EACs Clear, EOMI, Hearing Intact, Posterior Pharynx Clear, PERRLA. No: Mucosa Moist & [place] (Dry) Neck: Supple, Trachea Midline Lungs: Decreased Breath Sounds, Crackles Cardiovascular: Regular Rate, Regular Rhythm, Normal S1, Normal S2 GI/Abdominal Exam: Normal Bowel Sounds, Soft, Non-Tender, No Distention. No: Guarding, Rigid (Male) Exam: Deferred Rectal (Males) Exam: Deferred Back Exam: Normal Inspection, Full Range of Motion Extremities: Normal Inspection, Normal Range of Motion, No Pedal Edema Skin: Warm, Dry, Intact Neurological: Cranial Nerves Intact, Strength Equal Bilateral, Normal Gait, Normal Speech Psychiatric: Alert, Normal Affect, Normal Mood - Patient Data Lab Results Last 24 hrs: Laboratory Results - last 24 hr 10/07/20 10/07/20 10/07/20 Range/Units 08:20 08:20 08:20 WBC 4.65 (4.23-9.07) K/mm3 RBC 5.04 (4.63-6.08) M/mm3 Hgb 15.5 (13.7-17.5) gm/dl Hct 46.8 (40.1-51.0) % MCV 92.9 H (79.0-92.2) fl MCH 30.8 (25.7-32.2) pg MCHC 33.1 (32.2-35.5) g/dl RDW Std Deviation 43.8 (35.1-43.9) fL Plt Count 125 L (163-337) K/mm3 MPV 10.1 (9.4-12.3) fl Neut % (Auto) 71.6 H (34.0-67.9) % Lymph % (Auto) 18.1 L (21.8-53.1) % Terry % (Auto) 9.9 (5.3-12.2) % Eos % (Auto) 0 L (0.8-7.0) Baso % (Auto) 0.2 (0.1-1.2) % Neut # (Auto) 3.33 (1.78-5.38) K/mm3 Lymph # (Auto) 0.84 L (1.32-3.57) K/mm3 Terry # (Auto) 0.46 (0.30-0.82) K/mm3 Eos # (Auto) 0.00 L (0.04-0.54) K/mm3 Baso # (Auto) 0.01 (0.01-0.08) K/mm3 PT 11.3 (9.7-12.0) SECONDS INR 1.06 APTT 35.0 H (21.7-31.4) SECONDS D-Dimer, Quantitative 1.33 H (0.19-0.50) mg/L Sodium 137 (136-145) mEq/L Potassium 4.4 (3.5-5.1) mEq/L Chloride 99 (98-107) mEq/L Carbon Dioxide 29 (21-32) mEq/L Anion Gap 13.4 (5-15) BUN 19 H (7-18) mg/dL Creatinine 1.3 (0.7-1.3) mg/dL Est Cr Clr Drug Dosing 48.73 mL/min Estimated GFR (MDRD) 54 (>60) mL/min BUN/Creatinine Ratio 14.6 (14-18) Glucose 118 H (70-99) mg/dL Lactic Acid (0.4-2.0) mmol/L Calcium 8.7 (8.5-10.1) mg/dL Ferritin (26-388) ng/ml Total Bilirubin 0.6 (0.2-1.0) mg/dL AST 72 H (15-37) U/L ALT 71 H (16-63) U/L Alkaline Phosphatase 123 H (46-116) U/L Lactate Dehydrogenase 435 H (85-227) U/L Troponin I < 0.017 (0.00-0.056) ng/mL C-Reactive Protein 19.5 H* (<1.0) mg/dL Total Protein 7.2 (6.4-8.2) g/dl Albumin 3.2 L (3.4-5.0) g/dl Globulin 4.0 gm/dL Albumin/Globulin Ratio 0.8 L (1-2) 10/07/20 10/07/20 Range/Units 08:20 08:20 WBC (4.23-9.07) K/mm3 RBC (4.63-6.08) M/mm3 Hgb (13.7-17.5) gm/dl Hct (40.1-51.0) % MCV (79.0-92.2) fl MCH (25.7-32.2) pg MCHC (32.2-35.5) g/dl RDW Std Deviation (35.1-43.9) fL Plt Count (163-337) K/mm3 MPV (9.4-12.3) fl Neut % (Auto) (34.0-67.9) % Lymph % (Auto) (21.8-53.1) % Terry % (Auto) (5.3-12.2) % Eos % (Auto) (0.8-7.0) Baso % (Auto) (0.1-1.2) % Neut # (Auto) (1.78-5.38) K/mm3 Lymph # (Auto) (1.32-3.57) K/mm3 Terry # (Auto) (0.30-0.82) K/mm3 Eos # (Auto) (0.04-0.54) K/mm3 Baso # (Auto) (0.01-0.08) K/mm3 PT (9.7-12.0) SECONDS INR APTT (21.7-31.4) SECONDS D-Dimer, Quantitative (0.19-0.50) mg/L Sodium (136-145) mEq/L Potassium (3.5-5.1) mEq/L Chloride (98-107) mEq/L Carbon Dioxide (21-32) mEq/L Anion Gap (5-15) BUN (7-18) mg/dL Creatinine (0.7-1.3) mg/dL Est Cr Clr Drug Dosing mL/min Estimated GFR (MDRD) (>60) mL/min BUN/Creatinine Ratio (14-18) Glucose (70-99) mg/dL Lactic Acid 1.1 (0.4-2.0) mmol/L Calcium (8.5-10.1) mg/dL Ferritin 908 H (26-388) ng/ml Total Bilirubin (0.2-1.0) mg/dL AST (15-37) U/L ALT (16-63) U/L Alkaline Phosphatase (46-116) U/L Lactate Dehydrogenase (85-227) U/L Troponin I (0.00-0.056) ng/mL C-Reactive Protein (<1.0) mg/dL Total Protein (6.4-8.2) g/dl Albumin (3.4-5.0) g/dl Globulin gm/dL Albumin/Globulin Ratio (1-2) Result Diagrams: 10/07/20 08:20 10/07/20 08:20 Sepsis Event Note - Evaluation Sepsis Screening Result: No Definite Risk - Focused Exam Vital Signs: Vital Signs Temp Pulse Resp BP Pulse Ox 10/07/20 09:15 36.6 C 84 24 H 115/66 95 10/07/20 08:35 76 24 H 160/83 H 95 10/07/20 07:15 37.1 C 72 32 H 240/218 H 89 L - Problem List (1) Acute respiratory failure due to COVID-19 SNOMED Code(s): 694896417 ICD Code: U07.1 - COVID-19; J96.00 - ACUTE RESPIRATORY FAILURE, UNSP W HYPOXIA OR HYPERCAPNIA Status: Acute Priority: High Current Visit: Yes (2) Pneumonia due to COVID-19 virus SNOMED Code(s): 349148617844167585 ICD Code: U07.1 - COVID-19; J12.82 - PNEUMONIA DUE TO CORONAVIRUS DISEASE 2019 Status: Acute Priority: High Current Visit: Yes (3) Headache SNOMED Code(s): 86683960 ICD Code: R51.9 - HEADACHE, UNSPECIFIED Status: Chronic Priority: Medium Current Visit: Yes Qualifiers: Headache type: other headache syndrome Qualified Code(s): G44.89 - Other headache syndrome Problem List Initiated/Reviewed/Updated: Yes Orders Last 24hrs: Active Orders 24 hr Category Date Time Status Cardiac Monitoring [RC] . DIRECTED Care 10/07/20 07:47 Active EKG 12 Lead [EKG Documentation Completion] [RC] STAT Care 10/07/20 07:25 Active Oxygen Therapy [RC] PRN Care 10/07/20 07:47 Active Peripheral IV Care [RC] . DIRECTED Care 10/07/20 07:48 Active CULTURE BLOOD [BC] Stat Lab 10/07/20 08:20 Received CULTURE BLOOD [BC] Stat Lab 10/07/20 08:30 Received Remdesivir 200 mg Med 10/07/20 11:00 Active Sodium Chloride 0.9% [Normal Saline] 250 ml IV ONETIME Sodium Chloride 0.9% [Normal Saline] 1,000 ml Med 10/07/20 08:45 Active IV ASDIRECTED Sodium Chloride 0.9% [Saline Flush] Med 10/07/20 07:47 Active 10 ml FLUSH ASDIRECTED PRN Blood Culture x2 Reflex Set [OM.PC] Stat Ot 10/07/20 08:38 Ordered ED Antiemetic Medication Reflex [OM.PC] Stat Ot 10/07/20 07:48 Ordered Peripheral IV Insertion Adult [OM.PC] Stat Ot 10/07/20 07:47 Ordered Medication Orders Sodium Chloride (Normal Saline) 1,000 mls @ 150 mls/hr IV ASDIRECTED VIKTOR Last Admin: 10/07/20 09:00 Dose: 150 mls/hr Documented by: FEDERICO Remdesivir 200 mg/ Sodium (Chloride) 250 mls @ 250 mls/hr IV ONETIME ONE Stop: 10/07/20 11:59 Sodium Chloride (Sodium Chloride 0.9% 10 Ml Syringe) 10 ml FLUSH ASDIRECTED PRN PRN Reason: Keep Vein Open Last Admin: 10/07/20 08:26 Dose: 10 ml Documented by: FEDERICO Assessment/Plan Comment:: The patient is a 70-year-old gentleman who has been admitted to [facility] as an inpatient due to COVID-19 pneumonia. The patient will be started on remdesivir starting tomorrow as he has received first dose today in the emergency room. He is also placed on p.o. dexamethasone 6 mg daily. The patient also has had his antihypertensive medication started and we will continue to monitor him on telemetry. His medications will be adjusted as necessary. The patient is to have a heart healthy diet as tolerated. I have ordered repeat laboratory studies for the morning. He will have oxygen support to keep his saturations around 92%. The patient likely will need to have follow-up with neurology after discharge because of his continuing headache. The patient will be likely appropriate for discharge in 4 to 5 days after remdesivir treatment. - Mortality Measure Prognosis:: Good
[2020-10-07] MEDS ORDERED: Temazepam 15 MG Cap PO PRN (10:53)
[2020-10-07] MEDS ORDERED: Albuterol/Ipratropium 3.0-0.5 MG/3 ML Neb Soln NEB PRN (10:53)
[2020-10-07] MEDS ORDERED: Docusate Sodium 100 MG Cap PO PRN (10:53)
[2020-10-07] MEDS ORDERED: Ondansetron 4 MG Tab.DIS PO PRN (10:53)
[2020-10-07] MEDS: Enoxaparin 40 MG/0.4 ML Syringe SUBCUT SCH (12:32)
[2020-10-07] MEDS: Pramipexole 0.5 MG Tab PO SCH (21:13)
[2020-10-07] MEDS: Gabapentin 300 MG Cap PO SCH (21:13)
[2020-10-07] MEDS: Diazepam 2 MG Tab PO SCH (21:14)
--- NOTE | 2020-10-08 06:45 | PCM.PN ---
- General Info Date of Service: 10/08/20 Admission Dx/Problem (Free Text): COVID-19 pneumonia. Subjective Update: The patient is a 70-year-old gentleman who was admitted yesterday secondary to Covid pneumonia. The patient's main concern today is he feels like his headache is returning. The patient has been on dexamethasone as well as remdesivir. He says that he has a cough. The patient has been tolerating a diet. No other complaints. Functional Status: Reports: Pain Controlled - Review of Systems General: Reports: No Symptoms HEENT: Reports: Headaches (Chronic) Pulmonary: Reports: Shortness of Breath, Cough Cardiovascular: Reports: No Symptoms Gastrointestinal: Reports: No Symptoms Genitourinary: Reports: No Symptoms Musculoskeletal: Reports: No Symptoms Skin: Reports: No Symptoms Neurological: Reports: No Symptoms Psychiatric: Reports: No Symptoms - Patient Data Vitals - Most Recent: Last Vital Signs Temp 36.5 C 10/08/20 05:14 Pulse 53 L 10/08/20 05:14 Resp 13 10/08/20 05:14 BP 153/75 H 10/08/20 05:14 Pulse Ox 94 L 10/08/20 06:31 Weight - Most Recent: 83.688 kg I&O - Last 24 Hours: Intake & Output 10/07/20 10/07/20 10/08/20 14:59 22:59 06:59 Intake Total 595 1200 Output Total 400 950 Balance 195 250 Lab Results Last 24 Hours: Laboratory Results - last 24 hr 10/07/20 10/07/20 10/07/20 Range/Units 08:20 08:20 08:20 WBC 4.65 (4.23-9.07) K/mm3 RBC 5.04 (4.63-6.08) M/mm3 Hgb 15.5 (13.7-17.5) gm/dl Hct 46.8 (40.1-51.0) % MCV 92.9 H (79.0-92.2) fl MCH 30.8 (25.7-32.2) pg MCHC 33.1 (32.2-35.5) g/dl RDW Std Deviation 43.8 (35.1-43.9) fL Plt Count 125 L (163-337) K/mm3 MPV 10.1 (9.4-12.3) fl Neut % (Auto) 71.6 H (34.0-67.9) % Lymph % (Auto) 18.1 L (21.8-53.1) % [place] % (Auto) 9.9 (5.3-12.2) % Eos % (Auto) 0 L (0.8-7.0) Baso % (Auto) 0.2 (0.1-1.2) % Neut # (Auto) 3.33 (1.78-5.38) K/mm3 Lymph # (Auto) 0.84 L (1.32-3.57) K/mm3 [place] # (Auto) 0.46 (0.30-0.82) K/mm3 Eos # (Auto) 0.00 L (0.04-0.54) K/mm3 Baso # (Auto) 0.01 (0.01-0.08) K/mm3 PT 11.3 (9.7-12.0) SECONDS INR 1.06 APTT 35.0 H (21.7-31.4) SECONDS D-Dimer, Quantitative 1.33 H (0.19-0.50) mg/L Sodium 137 (136-145) mEq/L Potassium 4.4 (3.5-5.1) mEq/L Chloride 99 (98-107) mEq/L Carbon Dioxide 29 (21-32) mEq/L Anion Gap 13.4 (5-15) BUN 19 H (7-18) mg/dL Creatinine 1.3 (0.7-1.3) mg/dL Est Cr Clr Drug Dosing 48.73 mL/min Estimated GFR (MDRD) 54 (>60) mL/min BUN/Creatinine Ratio 14.6 (14-18) Glucose 118 H (70-99) mg/dL Lactic Acid (0.4-2.0) mmol/L Calcium 8.7 (8.5-10.1) mg/dL Magnesium (1.8-2.4) mg/dL Ferritin (26-388) ng/ml Total Bilirubin 0.6 (0.2-1.0) mg/dL AST 72 H (15-37) U/L ALT 71 H (16-63) U/L Alkaline Phosphatase 123 H (46-116) U/L Lactate Dehydrogenase 435 H (85-227) U/L Troponin I < 0.017 (0.00-0.056) ng/mL C-Reactive Protein 19.5 H* (<1.0) mg/dL Total Protein 7.2 (6.4-8.2) g/dl Albumin 3.2 L (3.4-5.0) g/dl Globulin 4.0 gm/dL Albumin/Globulin Ratio 0.8 L (1-2) 10/07/20 10/07/20 10/08/20 Range/Units 08:20 08:20 05:26 WBC 2.98 L (4.23-9.07) K/mm3 RBC 4.71 (4.63-6.08) M/mm3 Hgb 14.8 (13.7-17.5) gm/dl Hct 43.4 (40.1-51.0) % MCV 92.1 (79.0-92.2) fl MCH 31.4 (25.7-32.2) pg MCHC 34.1 (32.2-35.5) g/dl RDW Std Deviation 42.8 (35.1-43.9) fL Plt Count 119 L (163-337) K/mm3 MPV 10.3 (9.4-12.3) fl Neut % (Auto) 59.5 (34.0-67.9) % Lymph % (Auto) 28.5 (21.8-53.1) % [place] % (Auto) 11.7 (5.3-12.2) % Eos % (Auto) 0 L (0.8-7.0) Baso % (Auto) 0.0 L (0.1-1.2) % Neut # (Auto) 1.77 L (1.78-5.38) K/mm3 Lymph # (Auto) 0.85 L (1.32-3.57) K/mm3 [place] # (Auto) 0.35 (0.30-0.82) K/mm3 Eos # (Auto) 0.00 L (0.04-0.54) K/mm3 Baso # (Auto) 0.00 L (0.01-0.08) K/mm3 PT (9.7-12.0) SECONDS INR APTT (21.7-31.4) SECONDS D-Dimer, Quantitative (0.19-0.50) mg/L Sodium (136-145) mEq/L Potassium (3.5-5.1) mEq/L Chloride (98-107) mEq/L Carbon Dioxide (21-32) mEq/L Anion Gap (5-15) BUN (7-18) mg/dL Creatinine (0.7-1.3) mg/dL Est Cr Clr Drug Dosing mL/min Estimated GFR (MDRD) (>60) mL/min BUN/Creatinine Ratio (14-18) Glucose (70-99) mg/dL Lactic Acid 1.1 (0.4-2.0) mmol/L Calcium (8.5-10.1) mg/dL Magnesium (1.8-2.4) mg/dL Ferritin 908 H (26-388) ng/ml Total Bilirubin (0.2-1.0) mg/dL AST (15-37) U/L ALT (16-63) U/L Alkaline Phosphatase (46-116) U/L Lactate Dehydrogenase (85-227) U/L Troponin I (0.00-0.056) ng/mL C-Reactive Protein (<1.0) mg/dL Total Protein (6.4-8.2) g/dl Albumin (3.4-5.0) g/dl Globulin gm/dL Albumin/Globulin Ratio (1-2) 10/08/20 10/08/20 Range/Units 05:26 05:26 WBC (4.23-9.07) K/mm3 RBC (4.63-6.08) M/mm3 Hgb (13.7-17.5) gm/dl Hct (40.1-51.0) % MCV (79.0-92.2) fl MCH (25.7-32.2) pg MCHC (32.2-35.5) g/dl RDW Std Deviation (35.1-43.9) fL Plt Count (163-337) K/mm3 MPV (9.4-12.3) fl Neut % (Auto) (34.0-67.9) % Lymph % (Auto) (21.8-53.1) % [place] % (Auto) (5.3-12.2) % Eos % (Auto) (0.8-7.0) Baso % (Auto) (0.1-1.2) % Neut # (Auto) (1.78-5.38) K/mm3 Lymph # (Auto) (1.32-3.57) K/mm3 [place] # (Auto) (0.30-0.82) K/mm3 Eos # (Auto) (0.04-0.54) K/mm3 Baso # (Auto) (0.01-0.08) K/mm3 PT (9.7-12.0) SECONDS INR APTT (21.7-31.4) SECONDS D-Dimer, Quantitative 0.88 H (0.19-0.50) mg/L Sodium 142 (136-145) mEq/L Potassium 4.5 (3.5-5.1) mEq/L Chloride 106 (98-107) mEq/L Carbon Dioxide 25 (21-32) mEq/L Anion Gap 15.5 H (5-15) BUN 22 H (7-18) mg/dL Creatinine 0.8 (0.7-1.3) mg/dL Est Cr Clr Drug Dosing 79.18 mL/min Estimated GFR (MDRD) > 60 (>60) mL/min BUN/Creatinine Ratio 27.5 H (14-18) Glucose 139 H (70-99) mg/dL Lactic Acid (0.4-2.0) mmol/L Calcium 8.1 L (8.5-10.1) mg/dL Magnesium 1.7 L (1.8-2.4) mg/dL Ferritin (26-388) ng/ml Total Bilirubin 0.3 (0.2-1.0) mg/dL AST 55 H (15-37) U/L ALT 57 (16-63) U/L Alkaline Phosphatase 99 (46-116) U/L Lactate Dehydrogenase (85-227) U/L Troponin I (0.00-0.056) ng/mL C-Reactive Protein 16.3 H* (<1.0) mg/dL Total Protein 6.4 (6.4-8.2) g/dl Albumin 2.5 L (3.4-5.0) g/dl Globulin 3.9 gm/dL Albumin/Globulin Ratio 0.6 L (1-2) Med Orders - Current: Current Medications Acetaminophen (Acetaminophen 325 Mg Tab) 650 mg PO Q4H PRN PRN Reason: Pain (Mild 1-3)/fever Albuterol/Ipratropium (Albuterol/Ipratropium 3.0-0.5 Mg/3 Ml Neb Soln) 3 ml NEB Q4H PRN PRN Reason: Shortness Of Breath/wheezing Amlodipine Besylate (Amlodipine 2.5 Mg Tab) 2.5 mg PO QAM [facility] Ascorbic Acid (Ascorbic Acid 500 Mg Tab) 500 mg PO DAILY [facility] Benazepril HCl (Benazepril 20 Mg Tab) 20 mg PO QAM [facility] Dexamethasone (Dexamethasone 4 Mg Tab) 6 mg PO DAILY [facility] Diazepam (Diazepam 2 Mg Tab) 2 mg PO BEDTIME [facility] Last Admin: 10/07/20 21:14 Dose: 2 mg Documented by: Docusate Sodium (Docusate Sodium 100 Mg Cap) 100 mg PO BID PRN PRN Reason: Constipation Enoxaparin Sodium (Enoxaparin 40 Mg/0.4 Ml Syringe) 40 mg SUBCUT DAILY [facility] Last Admin: 10/07/20 12:32 Dose: 40 mg Documented by: Gabapentin (Gabapentin 300 Mg Cap) 300 mg PO BEDTIME [facility] Last Admin: 10/07/20 21:13 Dose: 300 mg Documented by: Sodium Chloride (Normal Saline) 1,000 mls @ 75 mls/hr IV ASDIRECTED [facility] Last Admin: 10/07/20 21:13 Dose: 75 mls/hr Documented by: Remdesivir 100 mg/ Sodium (Chloride) 100 mls @ 100 mls/hr IV Q24H [facility] Stop: 10/11/20 11:59 Magnesium Sulfate 2 gm/ Premix 50 mls @ 25 mls/hr IV Q1H [facility] Metoprolol Succinate (Metoprolol Succinate 25 Mg Tab.Er) 25 mg PO QAM [facility] Ondansetron HCl (Ondansetron 4 Mg Tab.Dis) 4 mg PO Q4H PRN PRN Reason: nausea, able to take PO Oxycodone HCl (Oxycodone 5 Mg Tab) 5 mg PO Q4H PRN PRN Reason: Pain (moderate 4-6) Pramipexole Dihydrochloride (Pramipexole 0.5 Mg Tab) 0.5 mg PO BEDTIME [facility] Last Admin: 10/07/20 21:13 Dose: 0.5 mg Documented by: Saccharomyces Boulardii (Saccharomyces Boulardii (Probiotic) 250 Mg Cap) 250 mg PO DAILY [facility] Sodium Chloride (Sodium Chloride 0.9% 10 Ml Syringe) 10 ml FLUSH ASDIRECTED PRN PRN Reason: Keep Vein Open Last Admin: 10/07/20 08:26 Dose: 10 ml Documented by: Temazepam (Temazepam 15 Mg Cap) 15 mg PO BEDTIME PRN PRN Reason: Sleep Discontinued Medications Dexamethasone (Dexamethasone 4 Mg/Ml Sdv) 6 mg IVPUSH ONETIME ONE Stop: 10/07/20 10:21 Last Admin: 10/07/20 10:56 Dose: 6 mg Documented by: Diphenhydramine HCl (Diphenhydramine 50 Mg/Ml Sdv) 50 mg IVPUSH ONETIME ONE Stop: 10/07/20 07:50 Last Admin: 10/07/20 08:26 Dose: 50 mg Documented by: Hydromorphone HCl (Hydromorphone 0.5 Mg/0.5 Ml Syringe) 0.5 mg IVPUSH ONETIME ONE Stop: 10/07/20 10:21 Last Admin: 10/07/20 10:54 Dose: 0.5 mg Documented by: Sodium Chloride (Normal Saline) 1,000 mls @ 150 mls/hr IV ASDIRECTED [facility] Last Admin: 10/07/20 09:00 Dose: 150 mls/hr Documented by: Remdesivir 200 mg/ Sodium (Chloride) 250 mls @ 250 mls/hr IV ONETIME ONE Stop: 10/07/20 10:21 Last Admin: 10/07/20 11:41 Dose: Not Given Documented by: Remdesivir 200 mg/ Sodium (Chloride) 250 mls @ 250 mls/hr IV ONETIME ONE Stop: 10/07/20 11:59 Last Admin: 10/07/20 11:05 Dose: 250 mls/hr Documented by: Ketorolac Tromethamine (Ketorolac 30 Mg/Ml Sdv) 30 mg IVPUSH ONETIME ONE Stop: 10/07/20 07:50 Last Admin: 10/07/20 08:24 Dose: 30 mg Documented by: Metoclopramide HCl (Metoclopramide 10 Mg/2 Ml Sdv) 10 mg IVPUSH ONETIME ONE Stop: 10/07/20 07:48 Last Admin: 10/07/20 08:22 Dose: 10 mg Documented by: Non-Formulary Medication (L.Acidoph,Paracasei, B.Lactis [Probiotic]) 1 each PO DAILY [facility] - Exam Quality Assessment: Supplemental Oxygen, DVT Prophylaxis General: Alert, Oriented, Cooperative, No Acute Distress HEENT: Pupils Equal, Pupils Reactive, EOMI Neck: Supple, Trachea Midline Lungs: Clear to Auscultation, Normal Respiratory Effort Cardiovascular: Regular Rate, Regular Rhythm GI/Abdominal Exam: Normal Bowel Sounds, Soft, Non-Tender, No Distention (Male) Exam: Deferred Back Exam: Normal Inspection, Full Range of Motion Extremities: Normal Inspection, Normal Range of Motion, No Pedal Edema Skin: Warm, Dry, Intact Neurological: No New Focal Deficit Psy/Mental Status: Alert, Normal Affect, Normal Mood - Patient Data Lab Results Last 24 hrs: Laboratory Results - last 24 hr 10/07/20 10/07/20 10/07/20 Range/Units 08:20 08:20 08:20 WBC 4.65 (4.23-9.07) K/mm3 RBC 5.04 (4.63-6.08) M/mm3 Hgb 15.5 (13.7-17.5) gm/dl Hct 46.8 (40.1-51.0) % MCV 92.9 H (79.0-92.2) fl MCH 30.8 (25.7-32.2) pg MCHC 33.1 (32.2-35.5) g/dl RDW Std Deviation 43.8 (35.1-43.9) fL Plt Count 125 L (163-337) K/mm3 MPV 10.1 (9.4-12.3) fl Neut % (Auto) 71.6 H (34.0-67.9) % Lymph % (Auto) 18.1 L (21.8-53.1) % [place] % (Auto) 9.9 (5.3-12.2) % Eos % (Auto) 0 L (0.8-7.0) Baso % (Auto) 0.2 (0.1-1.2) % Neut # (Auto) 3.33 (1.78-5.38) K/mm3 Lymph # (Auto) 0.84 L (1.32-3.57) K/mm3 [place] # (Auto) 0.46 (0.30-0.82) K/mm3 Eos # (Auto) 0.00 L (0.04-0.54) K/mm3 Baso # (Auto) 0.01 (0.01-0.08) K/mm3 PT 11.3 (9.7-12.0) SECONDS INR 1.06 APTT 35.0 H (21.7-31.4) SECONDS D-Dimer, Quantitative 1.33 H (0.19-0.50) mg/L Sodium 137 (136-145) mEq/L Potassium 4.4 (3.5-5.1) mEq/L Chloride 99 (98-107) mEq/L Carbon Dioxide 29 (21-32) mEq/L Anion Gap 13.4 (5-15) BUN 19 H (7-18) mg/dL Creatinine 1.3 (0.7-1.3) mg/dL Est Cr Clr Drug Dosing 48.73 mL/min Estimated GFR (MDRD) 54 (>60) mL/min BUN/Creatinine Ratio 14.6 (14-18) Glucose 118 H (70-99) mg/dL Lactic Acid (0.4-2.0) mmol/L Calcium 8.7 (8.5-10.1) mg/dL Magnesium (1.8-2.4) mg/dL Ferritin (26-388) ng/ml Total Bilirubin 0.6 (0.2-1.0) mg/dL AST 72 H (15-37) U/L ALT 71 H (16-63) U/L Alkaline Phosphatase 123 H (46-116) U/L Lactate Dehydrogenase 435 H (85-227) U/L Troponin I < 0.017 (0.00-0.056) ng/mL C-Reactive Protein 19.5 H* (<1.0) mg/dL Total Protein 7.2 (6.4-8.2) g/dl Albumin 3.2 L (3.4-5.0) g/dl Globulin 4.0 gm/dL Albumin/Globulin Ratio 0.8 L (1-2) 10/07/20 10/07/20 10/08/20 Range/Units 08:20 08:20 05:26 WBC 2.98 L (4.23-9.07) K/mm3 RBC 4.71 (4.63-6.08) M/mm3 Hgb 14.8 (13.7-17.5) gm/dl Hct 43.4 (40.1-51.0) % MCV 92.1 (79.0-92.2) fl MCH 31.4 (25.7-32.2) pg MCHC 34.1 (32.2-35.5) g/dl RDW Std Deviation 42.8 (35.1-43.9) fL Plt Count 119 L (163-337) K/mm3 MPV 10.3 (9.4-12.3) fl Neut % (Auto) 59.5 (34.0-67.9) % Lymph % (Auto) 28.5 (21.8-53.1) % [place] % (Auto) 11.7 (5.3-12.2) % Eos % (Auto) 0 L (0.8-7.0) Baso % (Auto) 0.0 L (0.1-1.2) % Neut # (Auto) 1.77 L (1.78-5.38) K/mm3 Lymph # (Auto) 0.85 L (1.32-3.57) K/mm3 [place] # (Auto) 0.35 (0.30-0.82) K/mm3 Eos # (Auto) 0.00 L (0.04-0.54) K/mm3 Baso # (Auto) 0.00 L (0.01-0.08) K/mm3 PT (9.7-12.0) SECONDS INR APTT (21.7-31.4) SECONDS D-Dimer, Quantitative (0.19-0.50) mg/L Sodium (136-145) mEq/L Potassium (3.5-5.1) mEq/L Chloride (98-107) mEq/L Carbon Dioxide (21-32) mEq/L Anion Gap (5-15) BUN (7-18) mg/dL Creatinine (0.7-1.3) mg/dL Est Cr Clr Drug Dosing mL/min Estimated GFR (MDRD) (>60) mL/min BUN/Creatinine Ratio (14-18) Glucose (70-99) mg/dL Lactic Acid 1.1 (0.4-2.0) mmol/L Calcium (8.5-10.1) mg/dL Magnesium (1.8-2.4) mg/dL Ferritin 908 H (26-388) ng/ml Total Bilirubin (0.2-1.0) mg/dL AST (15-37) U/L ALT (16-63) U/L Alkaline Phosphatase (46-116) U/L Lactate Dehydrogenase (85-227) U/L Troponin I (0.00-0.056) ng/mL C-Reactive Protein (<1.0) mg/dL Total Protein (6.4-8.2) g/dl Albumin (3.4-5.0) g/dl Globulin gm/dL Albumin/Globulin Ratio (1-2) 10/08/20 10/08/20 Range/Units 05:26 05:26 WBC (4.23-9.07) K/mm3 RBC (4.63-6.08) M/mm3 Hgb (13.7-17.5) gm/dl Hct (40.1-51.0) % MCV (79.0-92.2) fl MCH (25.7-32.2) pg MCHC (32.2-35.5) g/dl RDW Std Deviation (35.1-43.9) fL Plt Count (163-337) K/mm3 MPV (9.4-12.3) fl Neut % (Auto) (34.0-67.9) % Lymph % (Auto) (21.8-53.1) % [place] % (Auto) (5.3-12.2) % Eos % (Auto) (0.8-7.0) Baso % (Auto) (0.1-1.2) % Neut # (Auto) (1.78-5.38) K/mm3 Lymph # (Auto) (1.32-3.57) K/mm3 [place] # (Auto) (0.30-0.82) K/mm3 Eos # (Auto) (0.04-0.54) K/mm3 Baso # (Auto) (0.01-0.08) K/mm3 PT (9.7-12.0) SECONDS INR APTT (21.7-31.4) SECONDS D-Dimer, Quantitative 0.88 H (0.19-0.50) mg/L Sodium 142 (136-145) mEq/L Potassium 4.5 (3.5-5.1) mEq/L Chloride 106 (98-107) mEq/L Carbon Dioxide 25 (21-32) mEq/L Anion Gap 15.5 H (5-15) BUN 22 H (7-18) mg/dL Creatinine 0.8 (0.7-1.3) mg/dL Est Cr Clr Drug Dosing 79.18 mL/min Estimated GFR (MDRD) > 60 (>60) mL/min BUN/Creatinine Ratio 27.5 H (14-18) Glucose 139 H (70-99) mg/dL Lactic Acid (0.4-2.0) mmol/L Calcium 8.1 L (8.5-10.1) mg/dL Magnesium 1.7 L (1.8-2.4) mg/dL Ferritin (26-388) ng/ml Total Bilirubin 0.3 (0.2-1.0) mg/dL AST 55 H (15-37) U/L ALT 57 (16-63) U/L Alkaline Phosphatase 99 (46-116) U/L Lactate Dehydrogenase (85-227) U/L Troponin I (0.00-0.056) ng/mL C-Reactive Protein 16.3 H* (<1.0) mg/dL Total Protein 6.4 (6.4-8.2) g/dl Albumin 2.5 L (3.4-5.0) g/dl Globulin 3.9 gm/dL Albumin/Globulin Ratio 0.6 L (1-2) Result Diagrams: 10/08/20 05:26 10/08/20 05:26 Sepsis Event Note - Evaluation Sepsis Screening Result: No Definite Risk - Focused Exam Vital Signs: Vital Signs Temp Pulse Pulse Resp BP Pulse Ox Pulse Ox 10/08/20 06:31 94 L 10/08/20 05:14 36.5 C 53 L 13 153/75 H 92 L 10/08/20 00:00 52 L 10/07/20 23:57 14 96 10/07/20 23:54 36.4 C 39 L 16 145/74 H 94 L 10/07/20 21:11 94 L 10/07/20 21:10 36.6 C 57 L 12 126/68 89 L 10/07/20 19:34 94 L - Problem List & Annotations (1) Acute respiratory failure due to COVID-19 SNOMED Code(s): 014280256 Code(s): U07.1 - COVID-19; J96.00 - ACUTE RESPIRATORY FAILURE, UNSP W HYPOXIA OR HYPERCAPNIA Status: Acute Priority: High Current Visit: Yes (2) Pneumonia due to COVID-19 virus SNOMED Code(s): 839071716877259043 Code(s): U07.1 - COVID-19; J12.82 - PNEUMONIA DUE TO CORONAVIRUS DISEASE 2019 Status: Acute Priority: High Current Visit: Yes (3) Headache SNOMED Code(s): 40518305 Code(s): R51.9 - HEADACHE, UNSPECIFIED Status: Chronic Priority: Medium Current Visit: Yes Qualifiers: Headache type: other headache syndrome Qualified Code(s): G44.89 - Other headache syndrome - Problem List Review Problem List Initiated/Reviewed/Updated: Yes - My Orders Last 24 Hours: My Active Orders 10/07/20 10:53 Patient Status [ADT] Routine Up With Assistance [RC] BID VTE/DVT Education [RC] DAILY Vital Signs [RC] Q4HR Acetaminophen [TylenoL] 650 mg PO Q4H PRN Albuterol/Ipratropium [DuoNeb 3.0-0.5 MG/3 ML] 3 ml NEB Q4H PRN Docusate Sodium [Colace] 100 mg PO BID PRN Ondansetron [Zofran ODT] 4 mg PO Q4H PRN Temazepam [Restoril] 15 mg PO BEDTIME PRN oxyCODONE 5 mg PO Q4H PRN Resuscitation Status Routine 10/07/20 11:00 RT Aerosol Therapy [RC] ASDIRECTED Heart Healthy Diet [DIET] Enoxaparin [Lovenox] 40 mg SUBCUT DAILY Sodium Chloride 0.9% [Normal Saline] 1,000 ml IV ASDIRECTED 10/07/20 14:12 Incentive Spirometry [RT Incentive Spirometry] [RC] Q1HWA 10/07/20 16:21 Pulse Oximetry Continuous Monitoring [OM.PC] Routine 10/07/20 21:00 Gabapentin [Neurontin] 300 mg PO BEDTIME Pramipexole [Mirapex] 0.5 mg PO BEDTIME diazePAM [Valium] 2 mg PO BEDTIME 10/08/20 05:26 CBC WITH AUTO DIFF [HEME] AM 10/08/20 06:45 Magnesium Sulfate/Water [Magnesium Sulfate in Water 2 GM/50 ML] 2 gm Premix Bag 1 bag IV Q1H 10/08/20 08:00 Benazepril [Lotensin] 20 mg PO QAM Metoprolol Succinate [Toprol XL] 25 mg PO QAM amLODIPine [Norvasc] 2.5 mg PO QAM 10/08/20 09:00 Saccharomyces Boulardii [Florastor] 250 mg PO DAILY dexAMETHasone 6 mg PO DAILY 10/08/20 11:00 Remdesivir 100 mg Sodium Chloride 0.9% [Normal Saline] 100 ml IV Q24H 10/09/20 09:00 Ascorbic Acid [Vitamin C] 500 mg PO DAILY - Assessment Assessment:: The patient is a 70-year-old gentleman who will continue in hospitalization. I discontinued and saline lock his IV fluids. The patient is on day two of remdesivir. His oxygen will be titrated to keep his saturations around 92%. I have replaced the patient's magnesium. The patient will have his laboratory studies done tomorrow. I have also ordered a chest x-ray for tomorrow. The patient has been encouraged to ambulate. He will continue his diet as tolerated. He is still on telemetry. The patient will likely be appropriate for discharge in 3 to 4 days. - Plan Plan:: The patient is a 70-year-old gentleman who has been admitted to acute hospitalization as an inpatient due to COVID-19 pneumonia. The patient will be started on remdesivir starting tomorrow as he has received first dose today in the emergency room. He is also placed on p.o. dexamethasone 6 mg daily. The patient also has had his antihypertensive medication started and we will continue to monitor him on telemetry. His medications will be adjusted as necessary. The patient is to have a heart healthy diet as tolerated. I have ordered repeat laboratory studies for the morning. He will have oxygen support to keep his saturations around 92%. The patient likely will need to have follow-up with neurology after discharge because of his continuing headache. The patient will be likely appropriate for discharge in 4 to 5 days after remdesivir treatment.
[2020-10-08] MEDS ORDERED: Magnesium Sulfate/Water 2 GM in Premix Bag 1 BAG IV ONE (07:00)
[2020-10-08] MEDS: Metoprolol Succinate 25 MG Tab.ER PO SCH (07:43)
[2020-10-08] MEDS: amLODIPine 2.5 MG Tab PO SCH (08:40)
[2020-10-08] MEDS: Saccharomyces Boulardii (Probiotic) 250 MG Cap PO SCH (08:41)
[2020-10-08] MEDS: Dexamethasone 4 MG Tab PO SCH (08:41)
[2020-10-08] MEDS: Enoxaparin 40 MG/0.4 ML Syringe SUBCUT SCH (08:43)
[2020-10-08] MEDS: Acetaminophen 325 MG Tab PO PRN (09:31)
[2020-10-08] MEDS: Albuterol 6.7 GM Inhaler INH PRN ×3 (09:47→19:40)
[2020-10-08] MEDS: REMDESIVIR 100 MG in Sodium Chloride 0.9% 100 ML IV SCH (12:28)
[2020-10-08] MEDS: Diazepam 2 MG Tab PO SCH (20:15)
[2020-10-08] MEDS: Pramipexole 0.5 MG Tab PO SCH (20:15)
[2020-10-08] MEDS: Gabapentin 300 MG Cap PO SCH (20:15)
[2020-10-08] MEDS: oxyCODONE 5 MG Tab PO PRN (20:37)
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
[2020-10-09] MEDS: Dexamethasone 4 MG Tab PO SCH (08:06)
[2020-10-09] MEDS: Ascorbic Acid 500 MG Tab PO SCH (08:07)
[2020-10-09] MEDS: Saccharomyces Boulardii (Probiotic) 250 MG Cap PO SCH (08:07)
[2020-10-09] MEDS: amLODIPine 2.5 MG Tab PO SCH (08:07)
[2020-10-09] MEDS: Enoxaparin 40 MG/0.4 ML Syringe SUBCUT SCH (08:08)
[2020-10-09] MEDS: Metoprolol Succinate 25 MG Tab.ER PO SCH (08:08)
[2020-10-09] MEDS ORDERED: Non-Formulary Medication 1 Each (L.Acidoph,Paracasei, B.Lactis [Probiotic] 1 EACH Capsule) PO SCH (09:00)
[2020-10-09] MEDS: oxyCODONE 5 MG Tab PO PRN (10:11)
--- NOTE | 2020-10-09 10:17 | CR ---
Chest: Portable view of the chest was obtained. Comparison: Prior chest x-ray of 10/07/20 Increased density is seen within the left upper chest which is more prominent currently than seen on prior exam. Lungs otherwise are clear. Heart size is felt to be minimally increased. Tortuous thoracic aorta is seen. Mild scoliosis is noted within the spine with scattered degenerative change. Impression: 1. Increasing density within the left upper chest most likely representing pneumonia. 2. Other findings as noted above which are felt to be nonacute. Diagnostic code #3
[2020-10-09] MEDS: Acetaminophen 325 MG Tab PO PRN ×2 (12:23→16:35)
[2020-10-09] MEDS: REMDESIVIR 100 MG in Sodium Chloride 0.9% 100 ML IV SCH (12:23)
[2020-10-09] MEDS: Pramipexole 0.5 MG Tab PO SCH (21:30)
[2020-10-09] MEDS: Gabapentin 300 MG Cap PO SCH (21:30)
[2020-10-09] MEDS: Diazepam 2 MG Tab PO SCH (21:30)
[2020-10-10] MEDS: Albuterol 6.7 GM Inhaler INH PRN (04:33)
[2020-10-10] MEDS: oxyCODONE 5 MG Tab PO PRN (06:50)
[2020-10-10] MEDS: Saccharomyces Boulardii (Probiotic) 250 MG Cap PO SCH (08:11)
[2020-10-10] MEDS: Ascorbic Acid 500 MG Tab PO SCH (08:11)
[2020-10-10] MEDS: Dexamethasone 4 MG Tab PO SCH (08:11)
[2020-10-10] MEDS: Enoxaparin 40 MG/0.4 ML Syringe SUBCUT SCH (08:12)
--- NOTE | 2020-10-10 08:44 | PCM.PN ---
- General Info Date of Service: 10/10/20 Admission Dx/Problem (Free Text): COVID-19 pneumonia. Subjective Update: The patient is a 70-year-old gentleman who was admitted to acute hospitalization secondary to COVID-19 pneumonia. He was admitted on October 07, 2020 and subsequently started on remdesivir and dexamethasone. The patient had an episode of coughing where he had desaturated and had to be placed back on oxygen. The patient has a dry cough. He has been breathing better. He has been tolerating his diet. The patient has denied any pain. He has no other complaints today. Functional Status: Reports: Pain Controlled, Tolerating Diet - Review of Systems General: Reports: Weakness HEENT: Reports: Headaches Pulmonary: Reports: Cough. Denies: Sputum Cardiovascular: Reports: No Symptoms Gastrointestinal: Reports: No Symptoms Genitourinary: Reports: No Symptoms Musculoskeletal: Reports: No Symptoms Skin: Reports: No Symptoms Neurological: Reports: No Symptoms Psychiatric: Reports: No Symptoms - Patient Data Vitals - Most Recent: Last Vital Signs Temp 36.4 C 10/10/20 07:48 Pulse 68 10/10/20 07:49 Resp 18 10/10/20 07:48 BP 146/85 H 10/10/20 08:11 Pulse Ox 92 L 10/10/20 07:49 Weight - Most Recent: 83.325 kg I&O - Last 24 Hours: Intake & Output 10/09/20 10/10/20 10/10/20 22:59 06:59 14:59 Intake Total 1700 600 Balance 1700 600 Lab Results Last 24 Hours: Laboratory Results - last 24 hr 10/10/20 10/10/20 Range/Units 05:50 05:50 WBC 6.83 (4.23-9.07) K/mm3 RBC 5.00 (4.63-6.08) M/mm3 Hgb 15.4 (13.7-17.5) gm/dl Hct 45.7 (40.1-51.0) % MCV 91.4 (79.0-92.2) fl MCH 30.8 (25.7-32.2) pg MCHC 33.7 (32.2-35.5) g/dl RDW Std Deviation 43.8 (35.1-43.9) fL Plt Count 185 (163-337) K/mm3 MPV 10.5 (9.4-12.3) fl Neut % (Auto) 79.9 H (34.0-67.9) % Lymph % (Auto) 11.4 L (21.8-53.1) % [place] % (Auto) 8.5 (5.3-12.2) % Eos % (Auto) 0 L (0.8-7.0) Baso % (Auto) 0.1 (0.1-1.2) % Neut # (Auto) 5.45 H (1.78-5.38) K/mm3 Lymph # (Auto) 0.78 L (1.32-3.57) K/mm3 [place] # (Auto) 0.58 (0.30-0.82) K/mm3 Eos # (Auto) 0.00 L (0.04-0.54) K/mm3 Baso # (Auto) 0.01 (0.01-0.08) K/mm3 Sodium 142 (136-145) mEq/L Potassium 4.2 (3.5-5.1) mEq/L Chloride 106 (98-107) mEq/L Carbon Dioxide 27 (21-32) mEq/L Anion Gap 13.2 (5-15) BUN 26 H (7-18) mg/dL Creatinine 0.9 (0.7-1.3) mg/dL Est Cr Clr Drug Dosing 70.38 mL/min Estimated GFR (MDRD) > 60 (>60) mL/min BUN/Creatinine Ratio 28.9 H (14-18) Glucose 135 H (70-99) mg/dL Calcium 8.5 (8.5-10.1) mg/dL Total Bilirubin 0.6 (0.2-1.0) mg/dL AST 72 H (15-37) U/L ALT 84 H (16-63) U/L Alkaline Phosphatase 130 H (46-116) U/L C-Reactive Protein 7.6 H* (<1.0) mg/dL Total Protein 6.8 (6.4-8.2) g/dl Albumin 2.8 L (3.4-5.0) g/dl Globulin 4.0 gm/dL Albumin/Globulin Ratio 0.7 L (1-2) [place] Results Last 24 Hours: Microbiology 10/07/20 08:30 Aerobic Blood Culture - Preliminary Blood - Venous - Lab Draw NO GROWTH AFTER 3 DAYS Anaerobic Blood Culture - Preliminary NO GROWTH AFTER 3 DAYS 10/07/20 08:20 Aerobic Blood Culture - Preliminary Blood - Venous NO GROWTH AFTER 3 DAYS Anaerobic Blood Culture - Preliminary NO GROWTH AFTER 3 DAYS Med Orders - Current: Current Medications Acetaminophen (Acetaminophen 325 Mg Tab) 650 mg PO Q4H PRN PRN Reason: Pain (Mild 1-3)/fever Last Admin: 10/09/20 16:35 Dose: 650 mg Documented by: Albuterol (Albuterol 6.7 Gm Inhaler) 0 gm INH Q4H PRN PRN Reason: FOR SOB/WHEEZING Last Admin: 10/10/20 04:33 Dose: 2 puff Documented by: Ascorbic Acid (Ascorbic Acid 500 Mg Tab) 500 mg PO DAILY [facility] Last Admin: 10/10/20 08:11 Dose: 500 mg Documented by: Benazepril HCl (Benazepril 20 Mg Tab) 20 mg PO QAM [facility] Last Admin: 10/10/20 08:11 Dose: 20 mg Documented by: Dexamethasone (Dexamethasone 4 Mg Tab) 6 mg PO DAILY [facility] Last Admin: 10/10/20 08:11 Dose: 6 mg Documented by: Diazepam (Diazepam 2 Mg Tab) 2 mg PO BEDTIME [facility] Last Admin: 10/09/20 21:30 Dose: 2 mg Documented by: Docusate Sodium (Docusate Sodium 100 Mg Cap) 100 mg PO BID PRN PRN Reason: Constipation Enoxaparin Sodium (Enoxaparin 40 Mg/0.4 Ml Syringe) 40 mg SUBCUT DAILY [facility] Last Admin: 10/10/20 08:12 Dose: 40 mg Documented by: Gabapentin (Gabapentin 300 Mg Cap) 300 mg PO BEDTIME [facility] Last Admin: 10/09/20 21:30 Dose: 300 mg Documented by: Remdesivir 100 mg/ Sodium (Chloride) 100 mls @ 100 mls/hr IV Q24H [facility] Stop: 10/11/20 13:59 Last Admin: 10/09/20 12:23 Dose: 100 mls/hr Documented by: Ondansetron HCl (Ondansetron 4 Mg Tab.Dis) 4 mg PO Q4H PRN PRN Reason: nausea, able to take PO Oxycodone HCl (Oxycodone 5 Mg Tab) 5 mg PO Q4H PRN PRN Reason: Pain (moderate 4-6) Last Admin: 10/10/20 06:50 Dose: 5 mg Documented by: Pramipexole Dihydrochloride (Pramipexole 0.5 Mg Tab) 0.5 mg PO BEDTIME [facility] Last Admin: 10/09/20 21:30 Dose: 0.5 mg Documented by: Saccharomyces Boulardii (Saccharomyces Boulardii (Probiotic) 250 Mg Cap) 250 mg PO DAILY [facility] Last Admin: 10/10/20 08:11 Dose: 250 mg Documented by: Sodium Chloride (Sodium Chloride 0.9% 10 Ml Syringe) 10 ml FLUSH ASDIRECTED PRN PRN Reason: Keep Vein Open Last Admin: 10/07/20 08:26 Dose: 10 ml Documented by: Temazepam (Temazepam 15 Mg Cap) 15 mg PO BEDTIME PRN PRN Reason: Sleep Last Admin: 10/09/20 21:30 Dose: 15 mg Documented by: Discontinued Medications Albuterol/Ipratropium (Albuterol/Ipratropium 3.0-0.5 Mg/3 Ml Neb Soln) 3 ml NEB Q4H PRN PRN Reason: Shortness Of Breath/wheezing Amlodipine Besylate (Amlodipine 2.5 Mg Tab) 2.5 mg PO QAM [facility] Last Admin: 10/09/20 08:07 Dose: 2.5 mg Documented by: Dexamethasone (Dexamethasone 4 Mg/Ml Sdv) 6 mg IVPUSH ONETIME ONE Stop: 10/07/20 10:21 Last Admin: 10/07/20 10:56 Dose: 6 mg Documented by: Diphenhydramine HCl (Diphenhydramine 50 Mg/Ml Sdv) 50 mg IVPUSH ONETIME ONE Stop: 10/07/20 07:50 Last Admin: 10/07/20 08:26 Dose: 50 mg Documented by: Hydromorphone HCl (Hydromorphone 0.5 Mg/0.5 Ml Syringe) 0.5 mg IVPUSH ONETIME ONE Stop: 10/07/20 10:21 Last Admin: 10/07/20 10:54 Dose: 0.5 mg Documented by: Sodium Chloride (Normal Saline) 1,000 mls @ 150 mls/hr IV ASDIRECTED [facility] Last Admin: 10/07/20 09:00 Dose: 150 mls/hr Documented by: Remdesivir 200 mg/ Sodium (Chloride) 250 mls @ 250 mls/hr IV ONETIME ONE Stop: 10/07/20 10:21 Last Admin: 10/07/20 11:41 Dose: Not Given Documented by: Remdesivir 200 mg/ Sodium (Chloride) 250 mls @ 250 mls/hr IV ONETIME ONE Stop: 10/07/20 11:59 Last Admin: 10/07/20 11:05 Dose: 250 mls/hr Documented by: Sodium Chloride (Normal Saline) 1,000 mls @ 75 mls/hr IV ASDIRECTED [facility] Last Admin: 10/07/20 21:13 Dose: 75 mls/hr Documented by: Magnesium Sulfate 2 gm/ Premix 50 mls @ 25 mls/hr IV ONETIME ONE Stop: 10/08/20 08:59 Last Admin: 10/08/20 08:35 Dose: 25 mls/hr Documented by: Ketorolac Tromethamine (Ketorolac 30 Mg/Ml Sdv) 30 mg IVPUSH ONETIME ONE Stop: 10/07/20 07:50 Last Admin: 10/07/20 08:24 Dose: 30 mg Documented by: Metoclopramide HCl (Metoclopramide 10 Mg/2 Ml Sdv) 10 mg IVPUSH ONETIME ONE Stop: 10/07/20 07:48 Last Admin: 10/07/20 08:22 Dose: 10 mg Documented by: Metoprolol Succinate (Metoprolol Succinate 25 Mg Tab.Er) [facility] [place] Last Admin: 10/09/20 08:08 Dose: Not Given Documented by: Non-Formulary Medication (L.Acidoph,Paracasei, B.Lactis [Probiotic]) 1 each PO DAILY [facility] - Exam Quality Assessment: Supplemental Oxygen, DVT Prophylaxis General: Alert, Oriented, Cooperative, No Acute Distress HEENT: Pupils Equal, Pupils Reactive, EOMI, Mucous Membr. Moist/[place] Neck: Supple, Trachea Midline Lungs: Clear to Auscultation, Normal Respiratory Effort Cardiovascular: Regular Rate, Regular Rhythm, No Murmurs GI/Abdominal Exam: Normal Bowel Sounds, Soft, No Distention. No: Guarding, R igid (Male) Exam: Deferred Back Exam: Normal Inspection, Full Range of Motion Extremities: Normal Inspection, Normal Range of Motion, No Pedal Edema Skin: Warm, Dry, Intact Neurological: No New Focal Deficit, Normal Gait, Normal Speech Psy/Mental Status: Alert, Normal Affect, Normal Mood - Patient Data Lab Results Last 24 hrs: Laboratory Results - last 24 hr 10/10/20 10/10/20 Range/Units 05:50 05:50 WBC 6.83 (4.23-9.07) K/mm3 RBC 5.00 (4.63-6.08) M/mm3 Hgb 15.4 (13.7-17.5) gm/dl Hct 45.7 (40.1-51.0) % MCV 91.4 (79.0-92.2) fl MCH 30.8 (25.7-32.2) pg MCHC 33.7 (32.2-35.5) g/dl RDW Std Deviation 43.8 (35.1-43.9) fL Plt Count 185 (163-337) K/mm3 MPV 10.5 (9.4-12.3) fl Neut % (Auto) 79.9 H (34.0-67.9) % Lymph % (Auto) 11.4 L (21.8-53.1) % [place] % (Auto) 8.5 (5.3-12.2) % Eos % (Auto) 0 L (0.8-7.0) Baso % (Auto) 0.1 (0.1-1.2) % Neut # (Auto) 5.45 H (1.78-5.38) K/mm3 Lymph # (Auto) 0.78 L (1.32-3.57) K/mm3 [place] # (Auto) 0.58 (0.30-0.82) K/mm3 Eos # (Auto) 0.00 L (0.04-0.54) K/mm3 Baso # (Auto) 0.01 (0.01-0.08) K/mm3 Sodium 142 (136-145) mEq/L Potassium 4.2 (3.5-5.1) mEq/L Chloride 106 (98-107) mEq/L Carbon Dioxide 27 (21-32) mEq/L Anion Gap 13.2 (5-15) BUN 26 H (7-18) mg/dL Creatinine 0.9 (0.7-1.3) mg/dL Est Cr Clr Drug Dosing 70.38 mL/min Estimated GFR (MDRD) > 60 (>60) mL/min BUN/Creatinine Ratio 28.9 H (14-18) Glucose 135 H (70-99) mg/dL Calcium 8.5 (8.5-10.1) mg/dL Total Bilirubin 0.6 (0.2-1.0) mg/dL AST 72 H (15-37) U/L ALT 84 H (16-63) U/L Alkaline Phosphatase 130 H (46-116) U/L C-Reactive Protein 7.6 H* (<1.0) mg/dL Total Protein 6.8 (6.4-8.2) g/dl Albumin 2.8 L (3.4-5.0) g/dl Globulin 4.0 gm/dL Albumin/Globulin Ratio 0.7 L (1-2) Result Diagrams: 10/10/20 05:50 10/10/20 05:50 [place] Results Last 24 hrs: Microbiology 10/07/20 08:30 Aerobic Blood Culture - Preliminary Blood - Venous - Lab Draw NO GROWTH AFTER 3 DAYS Anaerobic Blood Culture - Preliminary NO GROWTH AFTER 3 DAYS 10/07/20 08:20 Aerobic Blood Culture - Preliminary Blood - Venous NO GROWTH AFTER 3 DAYS Anaerobic Blood Culture - Preliminary NO GROWTH AFTER 3 DAYS Sepsis Event Note - Evaluation Sepsis Screening Result: No Definite Risk - Focused Exam Vital Signs: Vital Signs Temp Pulse Resp BP Pulse Ox Pulse Ox Pulse Ox 10/10/20 08:11 146/85 H 10/10/20 07:49 68 150/118 H 92 L 10/10/20 07:48 36.4 C 68 18 160/129 H 92 L 10/10/20 06:21 92 L 10/10/20 04:33 92 L 10/10/20 04:18 36.5 C 61 12 149/106 H 92 L 10/10/20 00:53 36.4 C 68 14 140/90 91 L 10/09/20 21:52 94 L - Problem List & Annotations (1) Acute respiratory failure due to COVID-19 SNOMED Code(s): 952720217 Code(s): U07.1 - COVID-19; J96.00 - ACUTE RESPIRATORY FAILURE, UNSP W HYPOXIA OR HYPERCAPNIA Status: Resolved Priority: High Current Visit: Yes Annotation/Comment:: Currently on room air (2) Pneumonia due to COVID-19 virus SNOMED Code(s): 495944176488258811 Code(s): U07.1 - COVID-19; J12.82 - PNEUMONIA DUE TO CORONAVIRUS DISEASE 2019 Status: Acute Priority: High Current Visit: Yes (3) Headache SNOMED Code(s): 62350636 Code(s): R51.9 - HEADACHE, UNSPECIFIED Status: Chronic Priority: Medium Current Visit: Yes Qualifiers: Headache type: other headache syndrome Qualified Code(s): G44.89 - Other headache syndrome - Problem List Review Problem List Initiated/Reviewed/Updated: Yes - My Orders Last 24 Hours: My Active Orders 10/09/20 09:00 Ascorbic Acid [Vitamin C] 500 mg PO DAILY - Assessment Assessment:: The patient is a 70-year-old gentleman who will continue in hospitalization. I discontinued and saline lock his IV fluids. The patient is on day two of remdesivir. His oxygen will be titrated to keep his saturations around 92%. I have replaced the patient's magnesium. The patient will have his laboratory studies done tomorrow. I have also ordered a chest x-ray for tomorrow. The patient has been encouraged to ambulate. He will continue his diet as tolerated. He is still on telemetry. The patient will likely be appropriate for discharge in 3 to 4 days. 10/09/2020 The patient is a 70-year-old gentleman who will be continued in hospitalization until completion of remdesivir. Chest x-ray results are currently pending. He is on room air but we will continue to monitor his pulse oximetry and institute oxygen if necessary to keep his saturations around 92%. The patient's acute respiratory failure is considered resolved. He has been encouraged to ambulate. Patient's D-dimer is also elevated and as a result of this his anticoagulation with Lovenox will be continued. He is to have regular diet as tolerated. Repeat laboratory studies have been ordered. The patient should be appropriate for discharge after completion of the remdesivir. The patient's headache has also been resolved and this seems to be related to metoprolol. I have held the metoprolol today due to the patient's heart rate being in the mid 50s. 10/10/2020 The patient is a 70-year-old gentleman who was admitted to as an inpatient secondary to COVID-19 pneumonia. The patient has been encouraged to ambulate in the room. I have added Phenergan and codeine to help the patient with cough suppression. He will be maintained on oxygen support to help keep his saturations around 92%. The patient will also have 2 more doses of remdesivir. Repeat laboratory studies have been ordered. The patient should be appropriate for discharge after completion of remdesivir. He will be sent home on dexamethasone. The patient's CRP is improving and this will be repeated in the morning. He will continue his diet as tolerated. Continue telemetry. - Plan Plan:: The patient is a 70-year-old gentleman who has been admitted to acute hospitalization as an inpatient due to COVID-19 pneumonia. The patient will be started on remdesivir starting tomorrow as he has received first dose today in the emergency room. He is also placed on p.o. dexamethasone 6 mg daily. The patient also has had his antihypertensive medication started and we will continue to monitor him on telemetry. His medications will be adjusted as ne cessary. The patient is to have a heart healthy diet as tolerated. I have ordered repeat laboratory studies for the morning. He will have oxygen support to keep his saturations around 92%. The patient likely will need to have follow-up with neurology after discharge because of his continuing headache. The patient will be likely appropriate for discharge in 4 to 5 days after remdesivir treatment.
[2020-10-10] MEDS: Codeine/Promethazine 10-6.25 MG/5 ML Syrup 5 ML UD Cup PO SCH ×3 (09:42→21:00)
[2020-10-10] MEDS: Acetaminophen 325 MG Tab PO PRN (09:44)
[2020-10-10] MEDS: REMDESIVIR 100 MG in Sodium Chloride 0.9% 100 ML IV SCH (12:40)
[2020-10-10] MEDS: Diazepam 2 MG Tab PO SCH (21:00)
[2020-10-10] MEDS: Gabapentin 300 MG Cap PO SCH (21:00)
[2020-10-10] MEDS: Pramipexole 0.5 MG Tab PO SCH (21:00)
[2020-10-11] MEDS: Codeine/Promethazine 10-6.25 MG/5 ML Syrup 5 ML UD Cup PO SCH ×4 (03:50→20:18)
[2020-10-11] MEDS: Ascorbic Acid 500 MG Tab PO SCH (08:10)
[2020-10-11] MEDS: Enoxaparin 40 MG/0.4 ML Syringe SUBCUT SCH (08:11)
[2020-10-11] MEDS: Dexamethasone 4 MG Tab PO SCH (08:11)
[2020-10-11] MEDS: Saccharomyces Boulardii (Probiotic) 250 MG Cap PO SCH (08:11)
[2020-10-11] MEDS: Albuterol 6.7 GM Inhaler INH PRN ×3 (08:24→19:59)
[2020-10-11] MEDS: REMDESIVIR 100 MG in Sodium Chloride 0.9% 100 ML IV SCH (13:12)
--- NOTE | 2020-10-11 14:06 | PCM.PN ---
- General Info Date of Service: 10/11/20 Admission Dx/Problem (Free Text): COVID-19 pneumonia. Subjective Update: The patient is a 70-year-old gentleman who was admitted secondary to COVID-19 pneumonia. The patient says he is not doing as well as he was yesterday. Patient has required at least 2 L of oxygen. He is still having some shortness of breath. The patient otherwise has denied any pain. He says the narcotic cough syrup has been helping him at night. The patient also had O2 renetta lification and without oxygen he had desaturated down to 85%. Patient has denied any pain. He also has denied any fever or chills. Functional Status: Reports: Pain Controlled, Tolerating Diet - Review of Systems General: Reports: No Symptoms HEENT: Reports: No Symptoms Pulmonary: Reports: Shortness of Breath, Cough, Sputum Cardiovascular: Reports: No Symptoms Gastrointestinal: Reports: No Symptoms Genitourinary: Reports: No Symptoms Musculoskeletal: Reports: No Symptoms Skin: Reports: No Symptoms Neurological: Reports: No Symptoms Psychiatric: Reports: No Symptoms - Patient Data Vitals - Most Recent: Last Vital Signs Temp 36.8 C 10/11/20 08:08 Pulse 63 10/11/20 08:08 Resp 16 10/11/20 08:08 BP 168/66 H 10/11/20 08:10 Pulse Ox 85 L 10/11/20 08:38 Weight - Most Recent: 83.189 kg I&O - Last 24 Hours: Intake & Output 10/10/20 10/11/20 10/11/20 22:59 06:59 14:59 Intake Total 2080 800 200 Balance 2080 800 200 Lab Results Last 24 Hours: Laboratory Results - last 24 hr 10/11/20 10/11/20 Range/Units 05:45 05:45 WBC 6.84 (4.23-9.07) K/mm3 RBC 4.79 (4.63-6.08) M/mm3 Hgb 14.7 (13.7-17.5) gm/dl Hct 43.8 (40.1-51.0) % MCV 91.4 (79.0-92.2) fl MCH 30.7 (25.7-32.2) pg MCHC 33.6 (32.2-35.5) g/dl RDW Std Deviation 44.1 H (35.1-43.9) fL Plt Count 205 (163-337) K/mm3 MPV 10.5 (9.4-12.3) fl Neut % (Auto) 76.6 H (34.0-67.9) % Lymph % (Auto) 13.0 L (21.8-53.1) % Nelson % (Auto) 9.9 (5.3-12.2) % Eos % (Auto) 0 L (0.8-7.0) Baso % (Auto) 0.1 (0.1-1.2) % Neut # (Auto) 5.23 (1.78-5.38) K/mm3 Lymph # (Auto) 0.89 L (1.32-3.57) K/mm3 Nelson # (Auto) 0.68 (0.30-0.82) K/mm3 Eos # (Auto) 0.00 L (0.04-0.54) K/mm3 Baso # (Auto) 0.01 (0.01-0.08) K/mm3 Manual Slide Review Normal smear Sodium 142 (136-145) mEq/L Potassium 4.1 (3.5-5.1) mEq/L Chloride 106 (98-107) mEq/L Carbon Dioxide 26 (21-32) mEq/L Anion Gap 14.1 (5-15) BUN 25 H (7-18) mg/dL Creatinine 0.9 (0.7-1.3) mg/dL Est Cr Clr Drug Dosing 70.38 mL/min Estimated GFR (MDRD) > 60 (>60) mL/min BUN/Creatinine Ratio 27.8 H (14-18) Glucose 116 H (70-99) mg/dL Calcium 8.6 (8.5-10.1) mg/dL Total Bilirubin 0.6 (0.2-1.0) mg/dL AST 83 H (15-37) U/L ALT 102 H (16-63) U/L Alkaline Phosphatase 133 H (46-116) U/L C-Reactive Protein 6.2 H* (<1.0) mg/dL Total Protein 6.4 (6.4-8.2) g/dl Albumin 2.7 L (3.4-5.0) g/dl Globulin 3.7 gm/dL Albumin/Globulin Ratio 0.7 L (1-2) [place] Results Last 24 Hours: Microbiology 10/07/20 08:30 Aerobic Blood Culture - Preliminary Blood - Venous - Lab Draw NO GROWTH AFTER 4 DAYS Anaerobic Blood Culture - Preliminary NO GROWTH AFTER 4 DAYS 10/07/20 08:20 Aerobic Blood Culture - Preliminary Blood - Venous NO GROWTH AFTER 4 DAYS Anaerobic Blood Culture - Preliminary NO GROWTH AFTER 4 DAYS Med Orders - Current: Current Medications Acetaminophen (Acetaminophen 325 Mg Tab) 650 mg PO Q4H PRN PRN Reason: Pain (Mild 1-3)/fever Last Admin: 10/10/20 09:44 Dose: 650 mg Documented by: Albuterol (Albuterol 6.7 Gm Inhaler) 0 gm INH Q4H PRN PRN Reason: FOR SOB/WHEEZING Last Admin: 10/11/20 08:24 Dose: 2 puff Documented by: Ascorbic Acid (Ascorbic Acid 500 Mg Tab) 500 mg PO DAILY [facility] Last Admin: 10/11/20 08:10 Dose: 500 mg Documented by: Benazepril HCl (Benazepril 20 Mg Tab) 20 mg PO QAM [facility] Last Admin: 10/11/20 08:10 Dose: 20 mg Documented by: Dexamethasone (Dexamethasone 4 Mg Tab) 6 mg PO DAILY [facility] Last Admin: 10/11/20 08:11 Dose: 6 mg Documented by: Diazepam (Diazepam 2 Mg Tab) 2 mg PO BEDTIME [facility] Last Admin: 10/10/20 21:00 Dose: 2 mg Documented by: Docusate Sodium (Docusate Sodium 100 Mg Cap) 100 mg PO BID PRN PRN Reason: Constipation Enoxaparin Sodium (Enoxaparin 40 Mg/0.4 Ml Syringe) 40 mg SUBCUT DAILY [facility] Last Admin: 10/11/20 08:11 Dose: 40 mg Documented by: Gabapentin (Gabapentin 300 Mg Cap) 300 mg PO BEDTIME [facility] Last Admin: 10/10/20 21:00 Dose: 300 mg Documented by: Ondansetron HCl (Ondansetron 4 Mg Tab.Dis) 4 mg PO Q4H PRN PRN Reason: nausea, able to take PO Oxycodone HCl (Oxycodone 5 Mg Tab) 5 mg PO Q4H PRN PRN Reason: Pain (moderate 4-6) Last Admin: 10/10/20 06:50 Dose: 5 mg Documented by: Pramipexole Dihydrochloride (Pramipexole 0.5 Mg Tab) 0.5 mg PO BEDTIME [facility] Last Admin: 10/10/20 21:00 Dose: 0.5 mg Documented by: Promethazine HCl/Codeine (Codeine/Promethazine 10-6.25 Mg/5 Ml Syrup 5 Ml Ud Cup) 5 ml PO Q6H [facility] Last Admin: 10/11/20 08:12 Dose: 5 ml Documented by: Saccharomyces Boulardii (Saccharomyces Boulardii (Probiotic) 250 Mg Cap) 250 mg PO DAILY [facility] Last Admin: 10/11/20 08:11 Dose: 250 mg Documented by: Sodium Chloride (Sodium Chloride 0.9% 10 Ml Syringe) 10 ml FLUSH ASDIRECTED PRN PRN Reason: Keep Vein Open Last Admin: 10/07/20 08:26 Dose: 10 ml Documented by: Temazepam (Temazepam 15 Mg Cap) 15 mg PO BEDTIME PRN PRN Reason: Sleep Last Admin: 10/09/20 21:30 Dose: 15 mg Documented by: Discontinued Medications Albuterol/Ipratropium (Albuterol/Ipratropium 3.0-0.5 Mg/3 Ml Neb Soln) 3 ml NEB Q4H PRN PRN Reason: Shortness Of Breath/wheezing Amlodipine Besylate (Amlodipine 2.5 Mg Tab) 2.5 mg PO QAM [facility] Last Admin: 10/09/20 08:07 Dose: 2.5 mg Documented by: Dexamethasone (Dexamethasone 4 Mg/Ml Sdv) 6 mg IVPUSH ONETIME ONE Stop: 10/07/20 10:21 Last Admin: 10/07/20 10:56 Dose: 6 mg Documented by: Diphenhydramine HCl (Diphenhydramine 50 Mg/Ml Sdv) 50 mg IVPUSH ONETIME ONE Stop: 10/07/20 07:50 Last Admin: 10/07/20 08:26 Dose: 50 mg Documented by: Hydromorphone HCl (Hydromorphone 0.5 Mg/0.5 Ml Syringe) 0.5 mg IVPUSH ONETIME ONE Stop: 10/07/20 10:21 Last Admin: 10/07/20 10:54 Dose: 0.5 mg Documented by: Sodium Chloride (Normal Saline) 1,000 mls @ 150 mls/hr IV ASDIRECTED [facility] Last Admin: 10/07/20 09:00 Dose: 150 mls/hr Documented by: Remdesivir 200 mg/ Sodium (Chloride) 250 mls @ 250 mls/hr IV ONETIME ONE Stop: 10/07/20 10:21 Last Admin: 10/07/20 11:41 Dose: Not Given Documented by: Remdesivir 200 mg/ Sodium (Chloride) 250 mls @ 250 mls/hr IV ONETIME ONE Stop: 10/07/20 11:59 Last Admin: 10/07/20 11:05 Dose: 250 mls/hr Documented by: Sodium Chloride (Normal Saline) 1,000 mls @ 75 mls/hr IV ASDIRECTED [facility] Last Admin: 10/07/20 21:13 Dose: 75 mls/hr Documented by: Remdesivir 100 mg/ Sodium (Chloride) 100 mls @ 100 mls/hr IV Q24H [facility] Stop: 10/11/20 13:59 Last Admin: 10/11/20 13:12 Dose: 100 mls/hr Documented by: Magnesium Sulfate 2 gm/ Premix 50 mls @ 25 mls/hr IV ONETIME ONE Stop: 10/08/20 08:59 Last Admin: 10/08/20 08:35 Dose: 25 mls/hr Documented by: Ketorolac Tromethamine (Ketorolac 30 Mg/Ml Sdv) 30 mg IVPUSH ONETIME ONE Stop: 10/07/20 07:50 Last Admin: 10/07/20 08:24 Dose: 30 mg Documented by: Metoclopramide HCl (Metoclopramide 10 Mg/2 Ml Sdv) 10 mg IVPUSH ONETIME ONE Stop: 10/07/20 07:48 Last Admin: 10/07/20 08:22 Dose: 10 mg Documented by: Metoprolol Succinate (Metoprolol Succinate 25 Mg Tab.Er) 25 mg PO QAM [facility] Last Admin: 10/09/20 08:08 Dose: Not Given Documented by: Non-Formulary Medication (L.Acidoph,Paracasei, B.Lactis [Probiotic]) 1 each PO DAILY [facility] - Exam Quality Assessment: Supplemental Oxygen, DVT Prophylaxis General: Alert, Oriented, Cooperative, No Acute Distress HEENT: Pupils Equal, Pupils Reactive, EOMI, Mucous Membr. Moist/[place] Neck: Supple, Trachea Midline Lungs: Decreased Breath Sounds, Crackles (right sided) Cardiovascular: Regular Rate, Regular Rhythm, No Murmurs GI/Abdominal Exam: Normal Bowel Sounds, Soft, Non-Tender, No Distention Back Exam: Normal Inspection, Full Range of Motion Extremities: Normal Inspection, Normal Range of Motion, No Pedal Edema Skin: Warm, Dry, Intact Neurological: No New Focal Deficit, Normal Gait Psy/Mental Status: Alert, Normal Affect, Normal Mood - Patient Data Lab Results Last 24 hrs: Laboratory Results - last 24 hr 10/11/20 10/11/20 Range/Units 05:45 05:45 WBC 6.84 (4.23-9.07) K/mm3 RBC 4.79 (4.63-6.08) M/mm3 Hgb 14.7 (13.7-17.5) gm/dl Hct 43.8 (40.1-51.0) % MCV 91.4 (79.0-92.2) fl MCH 30.7 (25.7-32.2) pg MCHC 33.6 (32.2-35.5) g/dl RDW Std Deviation 44.1 H (35.1-43.9) fL Plt Count 205 (163-337) K/mm3 MPV 10.5 (9.4-12.3) fl Neut % (Auto) 76.6 H (34.0-67.9) % Lymph % (Auto) 13.0 L (21.8-53.1) % Nelson % (Auto) 9.9 (5.3-12.2) % Eos % (Auto) 0 L (0.8-7.0) Baso % (Auto) 0.1 (0.1-1.2) % Neut # (Auto) 5.23 (1.78-5.38) K/mm3 Lymph # (Auto) 0.89 L (1.32-3.57) K/mm3 Nelson # (Auto) 0.68 (0.30-0.82) K/mm3 Eos # (Auto) 0.00 L (0.04-0.54) K/mm3 Baso # (Auto) 0.01 (0.01-0.08) K/mm3 Manual Slide Review Normal smear Sodium 142 (136-145) mEq/L Potassium 4.1 (3.5-5.1) mEq/L Chloride 106 (98-107) mEq/L Carbon Dioxide 26 (21-32) mEq/L Anion Gap 14.1 (5-15) BUN 25 H (7-18) mg/dL Creatinine 0.9 (0.7-1.3) mg/dL Est Cr Clr Drug Dosing 70.38 mL/min Estimated GFR (MDRD) > 60 (>60) mL/min BUN/Creatinine Ratio 27.8 H (14-18) Glucose 116 H (70-99) mg/dL Calcium 8.6 (8.5-10.1) mg/dL Total Bilirubin 0.6 (0.2-1.0) mg/dL AST 83 H (15-37) U/L ALT 102 H (16-63) U/L Alkaline Phosphatase 133 H (46-116) U/L C-Reactive Protein 6.2 H* (<1.0) mg/dL Total Protein 6.4 (6.4-8.2) g/dl Albumin 2.7 L (3.4-5.0) g/dl Globulin 3.7 gm/dL Albumin/Globulin Ratio 0.7 L (1-2) Result Diagrams: 10/11/20 05:45 10/11/20 05:45 [place] Results Last 24 hrs: Microbiology 10/07/20 08:30 Aerobic Blood Culture - Preliminary Blood - Venous - Lab Draw NO GROWTH AFTER 4 DAYS Anaerobic Blood Culture - Preliminary NO GROWTH AFTER 4 DAYS 10/07/20 08:20 Aerobic Blood Culture - Preliminary Blood - Venous NO GROWTH AFTER 4 DAYS Anaerobic Blood Culture - Preliminary NO GROWTH AFTER 4 DAYS Sepsis Event Note - Evaluation Sepsis Screening Result: No Definite Risk - Focused Exam Vital Signs: Vital Signs Temp Pulse Resp BP Pulse Ox Pulse Ox Pulse Ox 10/11/20 08:38 85 L 10/11/20 08:25 92 L 10/11/20 08:10 168/66 H 10/11/20 08:08 36.8 C 63 16 168/66 H 92 L 10/11/20 06:12 92 L 10/11/20 03:55 36.6 C 63 18 141/99 H 92 L - Problem List & Annotations (1) Acute respiratory failure due to COVID-19 SNOMED Code(s): 074536838 Code(s): U07.1 - COVID-19; J96.00 - ACUTE RESPIRATORY FAILURE, UNSP W HYPOXIA OR HYPERCAPNIA Status: Acute Priority: High Current Visit: Yes (2) Pneumonia due to COVID-19 virus SNOMED Code(s): 424655611691461427 Code(s): U07.1 - COVID-19; J12.82 - PNEUMONIA DUE TO CORONAVIRUS DISEASE 2019 Status: Acute Priority: High Current Visit: Yes (3) Headache SNOMED Code(s): 28550545 Code(s): R51.9 - HEADACHE, UNSPECIFIED Status: Chronic Priority: Medium Current Visit: Yes Qualifiers: Headache type: other headache syndrome Qualified Code(s): G44.89 - Other headache syndrome - Problem List Review Problem List Initiated/Reviewed/Updated: Yes - Assessment Assessment:: The patient is a 70-year-old gentleman who will continue in hospitalization. I discontinued and saline lock his IV fluids. The patient is on day two of remdesivir. His oxygen will be titrated to keep his saturations around 92%. I have replaced the patient's magnesium. The patient will have his laboratory studies done tomorrow. I have also ordered a chest x-ray for tomorrow. The patient has been encouraged to ambulate. He will continue his diet as tolerated. He is still on telemetry. The patient will likely be appropriate for discharge in 3 to 4 days. 10/09/2020 The patient is a 70-year-old gentleman who will be continued in hospitalization until completion of remdesivir. Chest x-ray results are currently pending. He is on room air but we will continue to monitor his pulse oximetry and institute oxygen if necessary to keep his saturations around 92%. The patient's acute respiratory failure is considered resolved. He has been encouraged to ambulate. Patient's D-dimer is also elevated and as a result of this his anticoagulation with Lovenox will be continued. He is to have regular diet as tolerated. Repeat laboratory studies have been ordered. The patient should be appropriate for discharge after completion of the remdesivir. The patient's headache has also been resolved and this seems to be related to metoprolol. I have held the metoprolol today due to the patient's heart rate being in the mid 50s. 10/10/2020 The patient is a 70-year-old gentleman who was admitted to as an inpatient secondary to COVID-19 pneumonia. The patient has been encouraged to ambulate in the room. I have added Phenergan and codeine to help the patient with cough suppression. He will be maintained on oxygen support to help keep his saturations around 92%. The patient will also have 2 more doses of remdesivir. Repeat laboratory studies have been ordered. The patient should be appropriate for discharge after completion of remdesivir. He will be sent home on dexamethasone. The patient's CRP is improving and this will be repeated in the morning. He will continue his diet as tolerated. Continue telemetry. 10/11/20 The patient is a 70-year-old gentleman who has to be restarted back on oxygen as he has becoming increasingly short of breath. The patient has remained stable otherwise. Patient will continue with the Phenergan. Have ordered repeat laboratory studies for the morning. He has been encouraged to ambulate. The patient will remain on telemetry. He will continue with his regular diet as tolerated. Continue with vital sign monitoring and his oxygen will be adjusted to keep his saturations around 92%. The patient should be appropriate for discharge tomorrow likely with oxygen. I have discussed this with the patient. The patient has been retained in hospitalization greater than 96 hours secondary to continuation of antiviral treatment as well as oxygen support and steroid monitoring. - Plan Plan:: The patient is a 70-year-old gentleman who has been admitted to acute hospitalization as an inpatient due to COVID-19 pneumonia. The patient will be started on remdesivir starting tomorrow as he has received first dose today in the emergency room. He is also placed on p.o. dexamethasone 6 mg daily. The patient also has had his antihypertensive medication started and we will continue to monitor him on telemetry. His medications will be adjusted as necessary. The patient is to have a heart healthy diet as tolerated. I have ordered repeat laboratory studies for the morning. He will have oxygen support to keep his saturations around 92%. The patient likely will need to have fol low-up with neurology after discharge because of his continuing headache. The patient will be likely appropriate for discharge in 4 to 5 days after remdesivir treatment.
--- NOTE | 2020-10-11 14:50 | CR ---
Chest: Portable view of the chest is obtained. Comparison: Prior chest x-ray 10/09/20. Increased density is seen along the periphery of the left chest most of which appears fairly stable although there is some increased density within the left lung base from prior exam. There is also hazy density within the right chest which is also slightly more prominent than on prior study. Heart size is enlarged. Tortuous thoracic aorta is seen. No acute osseous abnormality is seen. Impression: 1. Patchy areas of increased density on both sides of the chest as described above. Findings have slightly worsened from prior study compatible with worsening Covid pneumonia. Diagnostic code #3
[2020-10-11] MEDS: Diazepam 2 MG Tab PO SCH (20:18)
[2020-10-11] MEDS: Gabapentin 300 MG Cap PO SCH (20:18)
[2020-10-11] MEDS: Pramipexole 0.5 MG Tab PO SCH (20:18)
[2020-10-12] MEDS: Codeine/Promethazine 10-6.25 MG/5 ML Syrup 5 ML UD Cup PO SCH ×2 (04:25→08:28)
[2020-10-12] MEDS: Enoxaparin 40 MG/0.4 ML Syringe SUBCUT SCH (08:27)
[2020-10-12] MEDS: Ascorbic Acid 500 MG Tab PO SCH (08:28)
[2020-10-12] MEDS: Dexamethasone 4 MG Tab PO SCH (08:28)
[2020-10-12] MEDS: Saccharomyces Boulardii (Probiotic) 250 MG Cap PO SCH (08:28)
--- NOTE | 2020-10-12 08:32 | CR ---
Chest: Portable view of the chest was obtained. Comparison: Prior chest x-ray of 10/11/20. Patchy increased density is seen within the left chest as well as lesser density within the right chest. Findings are felt to be fairly stable from prior exam. Heart size and mediastinum are stable. Bony structures show nothing acute. Impression: 1. Patchy areas of increased density on both sides of the chest, worse on the left side. Findings are compatible with stable Covid pneumonia. Diagnostic code #3
--- NOTE | 2020-10-12 10:55 | PCM.DCSUM1 ---
<LiOniel M - Last Filed: 10/12/20 11:02> Discharge Summary - Hospital Course Free Text/Narrative:: The patient is a 70-year-old gentleman who had presented to the emergency department primarily out of concern for severe headache. Patient says that he has had a frontal to bilateral parietal headache for at least the past 5 months. He was also reported to have some confusion. The patient has had a complete work-up for the headache. He was wanting to go to neurology however he also got sick 3 days ago and was diagnosed with COVID-19 pneumonia. The patient has had low oxygen saturations and he has been on oxygen in the emergency department. Patient does not use oxygen normally at home. He has had no specific aggravating or relieving factors for the pneumonia however his the counter medications help somewhat. The patient has denied any fever or chills. He has denied a cough. Patient has had some nausea and he has not taken any of his home medications. The patient has not been vaccinated for COVID-19. The patient has a chronic history of neuropathy and hypertension. Diagnosis: Stroke: No - Discharge Data Discharge Date: 10/12/20 Discharge Disposition: Home, Self-Care 01 Condition: Good - Referral to Home Health Primary Care Physician: PCP Not In Area - Discharge Diagnosis/Problem(s) (1) Acute respiratory failure due to COVID-19 SNOMED Code(s): 838399631 ICD Code: U07.1 - COVID-19; J96.00 - ACUTE RESPIRATORY FAILURE, UNSP W HYPOXIA OR HYPERCAPNIA Status: Acute Priority: High Current Visit: Yes (2) Hypoxia SNOMED Code(s): 057092146 ICD Code: R09.02 - HYPOXEMIA Status: Acute Priority: High Current V isit: Yes (3) Pneumonia due to COVID-19 virus SNOMED Code(s): 005695524293737628 ICD Code: U07.1 - COVID-19; J12.82 - PNEUMONIA DUE TO CORONAVIRUS DISEASE 2019 Status: Acute Priority: High Current Visit: Yes - Patient Summary/Data Hospital Course: 10/08/20 Assessment:: The patient is a 70-year-old gentleman who will continue in hospitalization. I discontinued and saline lock his IV fluids. The patient is on day two of remdesivir. His oxygen will be titrated to keep his saturations around 92%. I have replaced the patient's magnesium. The patient will have his laboratory studies done tomorrow. I have also ordered a chest x-ray for tomorrow. The patient has been encouraged to ambulate. He will continue his diet as tolerated. He is still on telemetry. The patient will likely be appropriate for discharge in 3 to 4 days. - Plan Plan:: The patient is a 70-year-old gentleman who has been admitted to [facility] as an inpatient due to COVID-19 pneumonia. The patient will be started on remdesivir starting tomorrow as he has received first dose today in the emergency room. He is also placed on p.o. dexamethasone 6 mg daily. The patient also has had his antihypertensive medication started and we will continue to monitor him on telemetry. His medications will be adjusted as necessary. The patient is to have a heart healthy diet as tolerated. I have ordered repeat laboratory studies for the morning. He will have oxygen support to keep his saturations around 92%. The patient likely will need to have follow-up with neurology after discharge because of his continuing headache. The patient will be likely appropriate for discharge in 4 to 5 days after remdesivir treatment. 10/09/2020 The patient is a 70-year-old gentleman who will be continued in hospitalization until completion of remdesivir. Chest x-ray results are currently pending. He is on room air but we will continue to monitor his pulse oximetry and institute oxygen if necessary to keep his saturations around 92%. The patient's acute respiratory failure is considered resolved. He has been encouraged to ambulate. Patient's D-dimer is also elevated and as a result of this his anticoagulation with Lovenox will be continued. He is to have regular diet as tolerated. Repeat laboratory studies have been ordered. The patient should be appropriate for discharge after completion of the remdesivir. The patient's headache has also been resolved and this seems to be related to metoprolol. I have held the metoprolol today due to the patient's heart rate being in the mid 50s. 10/10/2020 The patient is a 70-year-old gentleman who was admitted to as an inpatient secondary to COVID-19 pneumonia. The patient has been encouraged to ambulate in the room. I have added Phenergan and codeine to help the patient with cough suppression. He will be maintained on oxygen support to help keep his saturations around 92%. The patient will also have 2 more doses of remdesivir. Repeat laboratory studies have been ordered. The patient should be appropriate for discharge after completion of remdesivir. He will be sent home on dexamethasone. The patient's CRP is improving and this will be repeated in the morning. He will continue his diet as tolerated. Continue telemetry. 10/11/20 The patient is a 70-year-old gentleman who has to be restarted back on oxygen as he has becoming increasingly short of breath. The patient has remained stable otherwise. Patient will continue with the Phenergan. Have ordered repeat laboratory studies for the morning. He has been encouraged to ambulate. The patient will remain on telemetry. He will continue with his regular diet as tolerated. Continue with vital sign monitoring and his oxygen will be adjusted to keep his saturations around 92%. The patient should be appropriate for discharge tomorrow likely with oxygen. I have discussed this with the patient. The patient has been retained in hospitalization greater than 96 hours secondary to continuation of antiviral treatment as well as oxygen support and steroid monitoring. 10/12/20 70-year-old male admitted to the hospital as an inpatient due to Covid pneumonia. The patient was placed on oxygen therapy and did receive a 5-day course of remdesivir treatment. While in the hospital he also received dexamethasone 6 mg p.o. daily. This will be continued for another 4 days at discharge to complete a full 10-day course. At the day of discharge, the patient is on room air with oxygen saturations in the mid to upper 90s. Repeat chest x-ray today. Radiologist impression: 1. Patchy areas of increased density on both sides of the chest, worse on the left side. Findings are compatible with stable Covid pneumonia. He will not require home oxygen. He has been instructed to continue using his incentive spirometer and Acapella every hour while awake. He will follow up with his primary care provider in about 1 week for reevaluation. - Patient Instructions Diet: Regular Diet as Tolerated Activity: As Tolerated Activity, Other: Continue to use incentive spirometer and acapella for the next month Driving: [address] Today - Discharge Plan *PRESCRIPTION DRUG MONITORING PROGRAM REVIEWED*: Not Applicable *COPY OF PRESCRIPTION DRUG MONITORING REPORT IN PATIENT NIKOLE: Not Applicable Prescriptions/Med Rec: Albuterol Sulfate [Albuterol Sulfate HFA] 8.5 gm INH Q4H #1 ea dexAMETHasone [Dexamethasone] 6 mg PO DAILY 4 Days #6 tablet dexAMETHasone [Dexamethasone] 6 mg PO DAILY 4 Days #6 tablet Albuterol [Proventil HFA] 2 puff INH Q4H PRN #1 inhaler PRN Reason: FOR SOB/WHEEZING Home Medications: Home Meds Benazepril [Lotensin] 20 mg PO QAM 10/04/20 [History] Gabapentin [Neurontin] 300 mg PO BEDTIME 10/04/20 [History] Ibuprofen [Advil] 200 mg PO DAILY PRN 10/04/20 [History] Metoprolol Succinate 25 mg PO QAM 10/04/20 [History] Pramipexole [Mirapex] 0.5 mg PO BEDTIME 10/04/20 [History] diazePAM [Valium] 2 mg PO BEDTIME #15 tab 10/04/20 [Rx] Ascorbic Acid [Vitamin C] 500 mg PO DAILY 10/07/20 [History] L.acidoph,Paracasei, B.lactis [Probiotic] 1 each PO DAILY 10/07/20 [History] Multivitamin 1 tab PO DAILY 10/07/20 [History] SUMAtriptan succinate [Imitrex] 100 mg PO ASDIRECTED PRN 10/07/20 [History] Albuterol Sulfate [Albuterol Sulfate HFA] 8.5 gm INH Q4H #1 ea 10/12/20 [Rx] Albuterol [Proventil HFA] 2 puff INH Q4H PRN #1 inhaler 10/12/20 [Rx] Saccharomyces Boulardii [Florastor] 250 mg PO DAILY cap 10/12/20 [Rx] dexAMETHasone [Dexamethasone] 6 mg PO DAILY 4 Days #6 tablet 10/12/20 [Rx] dexAMETHasone [Dexamethasone] 6 mg PO DAILY 4 Days #6 tablet 10/12/20 [Rx] Oxygen Therapy Mode: Room Air Patient Handouts: COVID-19, Community-Acquired Pneumonia, Adult, [id number] Referrals: Alok Pimentel MD [Ordering Only Provider] - 10/20/20 11:00 am (This appt. is at the [facility] if this does not work for you please call an reschedule. Please arrive at 10:45) - Discharge Summary/Plan Comment DC Time >30 min.: No - General Info Date of Service: 10/12/20 Admission Dx/Problem (Free Text: COVID-19 pneumonia. Subjective Update: 70-year-old male admitted to the hospital as an inpatient due to Covid pneumonia. The patient was placed on oxygen therapy and did receive a 5-day course of remdesivir treatment. While in the hospital he also received dexamethasone 6 mg p.o. daily. This will be continued for another 4 days at discharge to complete a full 10-day course. At the day of discharge, the patient is on room air with oxygen saturations in the mid to upper 90s. Repeat chest x-ray today. Radiologist impression: 1. Patchy areas of increased density on both sides of the chest, worse on the left side. Findings are compatible with stable Covid pneumonia. He will not require home oxygen. He has been instructed to continue using his incentive spirometer and Acapella every hour while awake. He will follow up with his primary care provider in [facility] [place] 1 week for reevaluation. Functional Status: Reports: Pain Controlled, Tolerating Diet, Ambulating, Urinating, Incentive Spirometry - Review of Systems General: Reports: No Symptoms HEENT: Reports: No Symptoms Pulmonary: Reports: Cough (Occasional nonproductive) Cardiovascular: Reports: No Symptoms Gastrointestinal: Reports: No Symptoms Genitourinary: Reports: No Symptoms Musculoskeletal: Reports: No Symptoms Skin: Reports: No Symptoms Neurological: Reports: No Symptoms Psychiatric: Reports: No Symptoms - Patient Data Vitals - Most Recent: Last Vital Signs Temp 97.9 F 10/12/20 07:35 Pulse 61 10/12/20 07:35 Resp 16 10/12/20 07:35 BP 168/89 H 10/12/20 08:28 Pulse Ox 90 L 10/12/20 07:35 Weight - Most Recent: 81.329 kg I&O - Last 24 hours: Intake & Output 10/11/20 10/12/20 10/12/20 22:59 06:59 14:59 Intake Total 1540 700 Balance 1540 700 Lab Results - Last 24 hrs: Laboratory Results - last 24 hr 10/12/20 10/12/20 Range/Units 06:10 06:10 WBC 6.55 (4.23-9.07) K/mm3 RBC 4.75 (4.63-6.08) M/mm3 Hgb 14.6 (13.7-17.5) gm/dl Hct 43.4 (40.1-51.0) % MCV 91.4 (79.0-92.2) fl MCH 30.7 (25.7-32.2) pg MCHC 33.6 (32.2-35.5) g/dl RDW Std Deviation 44.0 H (35.1-43.9) fL Plt Count 208 (163-337) K/mm3 MPV 10.4 (9.4-12.3) fl Neut % (Auto) 76.1 H (34.0-67.9) % Lymph % (Auto) 13.0 L (21.8-53.1) % [place] % (Auto) 10.1 (5.3-12.2) % Eos % (Auto) 0 L (0.8-7.0) Baso % (Auto) 0.2 (0.1-1.2) % Neut # (Auto) 4.99 (1.78-5.38) K/mm3 Lymph # (Auto) 0.85 L (1.32-3.57) K/mm3 [place] # (Auto) 0.66 (0.30-0.82) K/mm3 Eos # (Auto) 0.00 L (0.04-0.54) K/mm3 Baso # (Auto) 0.01 (0.01-0.08) K/mm3 Manual Slide Review Normal smear Sodium 141 (136-145) mEq/L Potassium 4.2 (3.5-5.1) mEq/L Chloride 106 (98-107) mEq/L Carbon Dioxide 26 (21-32) mEq/L Anion Gap 13.2 (5-15) BUN 23 H (7-18) mg/dL Creatinine 0.9 (0.7-1.3) mg/dL Est Cr Clr Drug Dosing 70.38 mL/min Estimated GFR (MDRD) > 60 (>60) mL/min BUN/Creatinine Ratio 25.6 H (14-18) Glucose 124 H (70-99) mg/dL Calcium 8.4 L (8.5-10.1) mg/dL Magnesium 2.1 (1.8-2.4) mg/dL Total Bilirubin 0.6 (0.2-1.0) mg/dL AST 66 H (15-37) U/L ALT 117 H (16-63) U/L Alkaline Phosphatase 132 H (46-116) U/L C-Reactive Protein 4.4 H* (<1.0) mg/dL Total Protein 6.5 (6.4-8.2) g/dl Albumin 2.7 L (3.4-5.0) g/dl Globulin 3.8 gm/dL Albumin/Globulin Ratio 0.7 L (1-2) CYN Results - Last 24 hrs: Microbiology 10/07/20 08:30 Aerobic Blood Culture - Preliminary Blood - Venous - Lab Draw NO GROWTH AFTER 5 DAYS Anaerobic Blood Culture - Preliminary NO GROWTH AFTER 5 DAYS 10/07/20 08:20 Aerobic Blood Culture - Preliminary Blood - Venous NO GROWTH AFTER 5 DAYS Anaerobic Blood Culture - Preliminary NO GROWTH AFTER 5 DAYS Med Orders - Current: Current Medications Acetaminophen (Acetaminophen 325 Mg Tab) 650 mg PO Q4H PRN PRN Reason: Pain (Mild 1-3)/fever Last Admin: 10/10/20 09:44 Dose: 650 mg Documented by: Albuterol (Albuterol 6.7 Gm Inhaler) 0 gm INH Q4H PRN PRN Reason: FOR SOB/WHEEZING Last Admin: 10/11/20 19:59 Dose: 2 puff Documented by: Ascorbic Acid (Ascorbic Acid 500 Mg Tab) 500 mg PO DAILY [facility] Last Admin: 10/12/20 08:28 Dose: 500 mg Documented by: Benazepril HCl (Benazepril 20 Mg Tab) 20 mg PO QAM [facility] Last Admin: 10/12/20 08:28 Dose: 20 mg Documented by: Dexamethasone (Dexamethasone 4 Mg Tab) 6 mg PO DAILY [facility] Last Admin: 10/12/20 08:28 Dose: 6 mg Documented by: Diazepam (Diazepam 2 Mg Tab) 2 mg PO BEDTIME [facility] Last Admin: 10/11/20 20:18 Dose: 2 mg Documented by: Docusate Sodium (Docusate Sodium 100 Mg Cap) 100 mg PO BID PRN PRN Reason: Constipation Enoxaparin Sodium (Enoxaparin 40 Mg/0.4 Ml Syringe) 40 mg SUBCUT DAILY [facility] Last Admin: 10/12/20 08:27 Dose: 40 mg Documented by: Gabapentin (Gabapentin 300 Mg Cap) 300 mg PO BEDTIME [facility] Last Admin: 10/11/20 20:18 Dose: 300 mg Documented by: Ondansetron HCl (Ondansetron 4 Mg Tab.Dis) 4 mg PO Q4H PRN PRN Reason: nausea, able to take PO Oxycodone HCl (Oxycodone 5 Mg Tab) 5 mg PO Q4H PRN PRN Reason: Pain (moderate 4-6) Last Admin: 10/10/20 06:50 Dose: 5 mg Documented by: Pramipexole Dihydrochloride (Pramipexole 0.5 Mg Tab) 0.5 mg PO BEDTIME [facility] Last Admin: 10/11/20 20:18 Dose: 0.5 mg Documented by: Promethazine HCl/Codeine (Codeine/Promethazine 10-6.25 Mg/5 Ml Syrup 5 Ml Ud Cup) 5 ml PO Q6H [facility] Last Admin: 10/12/20 08:28 Dose: 5 ml Documented by: Saccharomyces Boulardii (Saccharomyces Boulardii (Probiotic) 250 Mg Cap) 250 mg PO DAILY [facility] Last Admin: 10/12/20 08:28 Dose: 250 mg Documented by: Sodium Chloride (Sodium Chloride 0.9% 10 Ml Syringe) 10 ml FLUSH ASDIRECTED PRN PRN Reason: Keep Vein Open Last Admin: 10/07/20 08:26 Dose: 10 ml Documented by: Temazepam (Temazepam 15 Mg Cap) 15 mg PO BEDTIME PRN PRN Reason: Sleep Last Admin: 10/09/20 21:30 Dose: 15 mg Documented by: Discontinued Medications Albuterol/Ipratropium (Albuterol/Ipratropium 3.0-0.5 Mg/3 Ml Neb Soln) 3 ml NEB Q4H PRN PRN Reason: Shortness Of Breath/wheezing Amlodipine Besylate (Amlodipine 2.5 Mg Tab) 2.5 mg PO QAM [facility] Last Admin: 10/09/20 08:07 Dose: 2.5 mg Documented by: Dexamethasone (Dexamethasone 4 Mg/Ml Sdv) 6 mg IVPUSH ONETIME ONE Stop: 10/07/20 10:21 Last Admin: 10/07/20 10:56 Dose: 6 mg Documented by: Diphenhydramine HCl (Diphenhydramine 50 Mg/Ml Sdv) 50 mg IVPUSH ONETIME ONE Stop: 10/07/20 07:50 Last Admin: 10/07/20 08:26 Dose: 50 mg Documented by: Hydromorphone HCl (Hydromorphone 0.5 Mg/0.5 Ml Syringe) 0.5 mg IVPUSH ONETIME ONE Stop: 10/07/20 10:21 Last Admin: 10/07/20 10:54 Dose: 0.5 mg Documented by: Sodium Chloride (Normal Saline) 1,000 mls @ 150 mls/hr IV ASDIRECTED [facility] Last Admin: 10/07/20 09:00 Dose: 150 mls/hr Documented by: Remdesivir 200 mg/ Sodium (Chloride) 250 mls @ 250 mls/hr IV ONETIME ONE Stop: 10/07/20 10:21 Last Admin: 10/07/20 11:41 Dose: Not Given Documented by: Remdesivir 200 mg/ Sodium (Chloride) 250 mls @ 250 mls/hr IV ONETIME ONE Stop: 10/07/20 11:59 Last Admin: 10/07/20 11:05 Dose: 250 mls/hr Documented by: Sodium Chloride (Normal Saline) 1,000 mls @ 75 mls/hr IV ASDIRECTED [facility] Last Admin: 10/07/20 21:13 Dose: 75 mls/hr Documented by: Remdesivir 100 mg/ Sodium (Chloride) 100 mls @ 100 mls/hr IV Q24H [facility] Stop: 10/11/20 13:59 Last Admin: 10/11/20 13:12 Dose: 100 mls/hr Documented by: Magnesium Sulfate 2 gm/ Premix 50 mls @ 25 mls/hr IV ONETIME ONE Stop: 10/08/20 08:59 Last Admin: 10/08/20 08:35 Dose: 25 mls/hr Documented by: Ketorolac Tromethamine (Ketorolac 30 Mg/Ml Sdv) 30 mg IVPUSH ONETIME ONE Stop: 10/07/20 07:50 Last Admin: 10/07/20 08:24 Dose: 30 mg Documented by: Metoclopramide HCl (Metoclopramide 10 Mg/2 Ml Sdv) 10 mg IVPUSH ONETIME ONE Stop: 10/07/20 07:48 Last Admin: 10/07/20 08:22 Dose: 10 mg Documented by: Metoprolol Succinate (Metoprolol Succinate 25 Mg Tab.Er) 25 mg PO QAM [facility] Last Admin: 10/09/20 08:08 Dose: Not Given Documented by: Non-Formulary Medication (L.Acidoph,Paracasei, B.Lactis [Probiotic]) 1 each PO DAILY [facility] - Exam Quality Assessment: Reports: DVT Prophylaxis (Was receiving Lovenox). Denies: Supplemental Oxygen General: Reports: Alert, Oriented, Cooperative, No Acute Distress HEENT: Reports: Pupils Equal, Pupils Reactive, Mucous Membr. Moist/[place] Neck: Reports: Supple, Trachea Midline Lungs: Reports: Other (Diminished with fine crackles noted in the bases) Cardiovascular: Reports: Regular Rate, Regular Rhythm, No Murmurs GI/Abdominal Exam: Normal Bowel Sounds, Soft, Non-Tender, No Distention (Male) Exam: Deferred Rectal (Males) Exam: Deferred Back Exam: Reports: Normal Inspection Extremities: Normal Inspection, Normal Range of Motion, Non-Tender, No Pedal Edema, Normal Capillary Refill Skin: Reports: Warm, Dry, Intact Wound/Incisions: Reports: Healing Well Neurological: Reports: No New Focal Deficit Psy/Mental Status: Reports: Alert, Normal Affect, Normal Mood <Fabien Wheeler - Last Filed: 10/12/20 12:36> Discharge Summary - Referral to Home Health Primary Care Physician: PCP Not In Area - Discharge Diagnosis/Problem(s) (1) Acute respiratory failure due to COVID-19 SNOMED Code(s): 481218101 ICD Code: U07.1 - COVID-19; J96.00 - ACUTE RESPIRATORY FAILURE, UNSP W HYPOXIA OR HYPERCAPNIA Status: Acute Priority: High Current Visit: Yes (2) Pneumonia due to COVID-19 virus SNOMED Code(s): 593175148651131163 ICD Code: U07.1 - COVID-19; J12.82 - PNEUMONIA DUE TO CORONAVIRUS DISEASE 2019 Status: Acute Priority: High Current Visit: Yes (3) Headache SNOMED Code(s): 06258367 ICD Code: R51.9 - HEADACHE, UNSPECIFIED Status: Chronic Priority: Medium Current Visit: Yes Qualifiers: Headache type: other headache syndrome Qualified Code(s): G44.89 - Other headache syndrome - Patient Summary/Data Hospital Course: I have seen and examined the patient independently of Oniel Li CNP, and I have discussed the case with her. I have reviewed the plan of care for this patient as outlined by her. Please see orders. - Patient Data Vitals - Most Recent: Last Vital Signs Temp 36.6 C 10/12/20 07:35 Pulse 61 10/12/20 07:35 Resp 16 10/12/20 07:35 BP 168/89 H 10/12/20 08:28 Pulse Ox 90 L 10/12/20 07:35 I&O - Last 24 hours: Intake & Output 10/11/20 10/12/20 10/12/20 22:59 06:59 14:59 Intake Total 1540 700 Balance 1540 700 Lab Results - Last 24 hrs: Laboratory Results - last 24 hr 10/12/20 10/12/20 Range/Units 06:10 06:10 WBC 6.55 (4.23-9.07) K/mm3 RBC 4.75 (4.63-6.08) M/mm3 Hgb 14.6 (13.7-17.5) gm/dl Hct 43.4 (40.1-51.0) % MCV 91.4 (79.0-92.2) fl MCH 30.7 (25.7-32.2) pg MCHC 33.6 (32.2-35.5) g/dl RDW Std Deviation 44.0 H (35.1-43.9) fL Plt Count 208 (163-337) K/mm3 MPV 10.4 (9.4-12.3) fl Neut % (Auto) 76.1 H (34.0-67.9) % Lymph % (Auto) 13.0 L (21.8-53.1) % [place] % (Auto) 10.1 (5.3-12.2) % Eos % (Auto) 0 L (0.8-7.0) Baso % (Auto) 0.2 (0.1-1.2) % Neut # (Auto) 4.99 (1.78-5.38) K/mm3 Lymph # (Auto) 0.85 L (1.32-3.57) K/mm3 [place] # (Auto) 0.66 (0.30-0.82) K/mm3 Eos # (Auto) 0.00 L (0.04-0.54) K/mm3 Baso # (Auto) 0.01 (0.01-0.08) K/mm3 Manual Slide Review Normal smear Sodium 141 (136-145) mEq/L Potassium 4.2 (3.5-5.1) mEq/L Chloride 106 (98-107) mEq/L Carbon Dioxide 26 (21-32) mEq/L Anion Gap 13.2 (5-15) BUN 23 H (7-18) mg/dL Creatinine 0.9 (0.7-1.3) mg/dL Est Cr Clr Drug Dosing 70.38 mL/min Estimated GFR (MDRD) > 60 (>60) mL/min BUN/Creatinine Ratio 25.6 H (14-18) Glucose 124 H (70-99) mg/dL Calcium 8.4 L (8.5-10.1) mg/dL Magnesium 2.1 (1.8-2.4) mg/dL Total Bilirubin 0.6 (0.2-1.0) mg/dL AST 66 H (15-37) U/L ALT 117 H (16-63) U/L Alkaline Phosphatase 132 H (46-116) U/L C-Reactive Protein 4.4 H* (<1.0) mg/dL Total Protein 6.5 (6.4-8.2) g/dl Albumin 2.7 L (3.4-5.0) g/dl Globulin 3.8 gm/dL Albumin/Globulin Ratio 0.7 L (1-2) CYN Results - Last 24 hrs: Microbiology 10/07/20 08:30 Aerobic Blood Culture - Preliminary Blood - Venous - Lab Draw NO GROWTH AFTER 5 DAYS Anaerobic Blood Culture - Preliminary NO GROWTH AFTER 5 DAYS 10/07/20 08:20 Aerobic Blood Culture - Preliminary Blood - Venous NO GROWTH AFTER 5 DAYS Anaerobic Blood Culture - Preliminary NO GROWTH AFTER 5 DAYS Med Orders - Current: Current Medications Acetaminophen (Acetaminophen 325 Mg Tab) 650 mg PO Q4H PRN PRN Reason: Pain (Mild 1-3)/fever Last Admin: 10/10/20 09:44 Dose: 650 mg Documented by: Albuterol (Albuterol 6.7 Gm Inhaler) 0 gm INH Q4H PRN PRN Reason: FOR SOB/WHEEZING Last Admin: 10/11/20 19:59 Dose: 2 puff Documented by: Ascorbic Acid (Ascorbic Acid 500 Mg Tab) 500 mg PO DAILY [facility] Last Admin: 10/12/20 08:28 Dose: 500 mg Documented by: Benazepril HCl (Benazepril 20 Mg Tab) 20 mg PO QAM [facility] Last Admin: 10/12/20 08:28 Dose: 20 mg Documented by: Dexamethasone (Dexamethasone 4 Mg Tab) 6 mg PO DAILY [facility] Last Admin: 10/12/20 08:28 Dose: 6 mg Documented by: Diazepam (Diazepam 2 Mg Tab) 2 mg PO BEDTIME [facility] Last Admin: 10/11/20 20:18 Dose: 2 mg Documented by: Docusate Sodium (Docusate Sodium 100 Mg Cap) 100 mg PO BID PRN PRN Reason: Constipation Enoxaparin Sodium (Enoxaparin 40 Mg/0.4 Ml Syringe) 40 mg SUBCUT DAILY [facility] Last Admin: 10/12/20 08:27 Dose: 40 mg Documented by: Gabapentin (Gabapentin 300 Mg Cap) 300 mg PO BEDTIME [facility] Last Admin: 10/11/20 20:18 Dose: 300 mg Documented by: Ondansetron HCl (Ondansetron 4 Mg Tab.Dis) 4 mg PO Q4H PRN PRN Reason: nausea, able to take PO Oxycodone HCl (Oxycodone 5 Mg Tab) 5 mg PO Q4H PRN PRN Reason: Pain (moderate 4-6) Last Admin: 10/10/20 06:50 Dose: 5 mg Documented by: Pramipexole Dihydrochloride (Pramipexole 0.5 Mg Tab) 0.5 mg PO BEDTIME [facility] Last Admin: 10/11/20 20:18 Dose: 0.5 mg Documented by: Promethazine HCl/Codeine (Codeine/Promethazine 10-6.25 Mg/5 Ml Syrup 5 Ml Ud Cup) 5 ml PO Q6H [facility] Last Admin: 10/12/20 08:28 Dose: 5 ml Documented by: Saccharomyces Boulardii (Saccharomyces Boulardii (Probiotic) 250 Mg Cap) 250 mg PO DAILY [facility] Last Admin: 10/12/20 08:28 Dose: 250 mg Documented by: Sodium Chloride (Sodium Chloride 0.9% 10 Ml Syringe) 10 ml FLUSH ASDIRECTED PRN PRN Reason: Keep Vein Open Last Admin: 10/07/20 08:26 Dose: 10 ml Documented by: Temazepam (Temazepam 15 Mg Cap) 15 mg PO BEDTIME PRN PRN Reason: Sleep Last Admin: 10/09/20 21:30 Dose: 15 mg Documented by: Discontinued Medications Albuterol/Ipratropium (Albuterol/Ipratropium 3.0-0.5 Mg/3 Ml Neb Soln) 3 ml NEB Q4H PRN PRN Reason: Shortness Of Breath/wheezing Amlodipine Besylate (Amlodipine 2.5 Mg Tab) [facility] Last Admin: 10/09/20 08:07 Dose: 2.5 mg Documented by: Dexamethasone (Dexamethasone 4 Mg/Ml Sdv) 6 mg IVPUSH ONETIME ONE Stop: 10/07/20 10:21 Last Admin: 10/07/20 10:56 Dose: 6 mg Documented by: Diphenhydramine HCl (Diphenhydramine 50 Mg/Ml Sdv) 50 mg IVPUSH ONETIME ONE Stop: 10/07/20 07:50 Last Admin: 10/07/20 08:26 Dose: 50 mg Documented by: Hydromorphone HCl (Hydromorphone 0.5 Mg/0.5 Ml Syringe) 0.5 mg IVPUSH ONETIME ONE Stop: 10/07/20 10:21 Last Admin: 10/07/20 10:54 Dose: 0.5 mg Documented by: Sodium Chloride (Normal Saline) 1,000 mls @ 150 mls/hr IV ASDIRECTED [facility] Last Admin: 10/07/20 09:00 Dose: 150 mls/hr Documented by: Remdesivir 200 mg/ Sodium (Chloride) 250 mls @ 250 mls/hr IV ONETIME ONE Stop: 10/07/20 10:21 Last Admin: 10/07/20 11:41 Dose: Not Given Documented by: Remdesivir 200 mg/ Sodium (Chloride) 250 mls @ 250 mls/hr IV ONETIME ONE Stop: 10/07/20 11:59 Last Admin: 10/07/20 11:05 Dose: 250 mls/hr Documented by: Sodium Chloride (Normal Saline) 1,000 mls @ 75 mls/hr IV ASDIRECTED [facility] Last Admin: 10/07/20 21:13 Dose: 75 mls/hr Documented by: Remdesivir 100 mg/ Sodium (Chloride) 100 mls @ 100 mls/hr IV Q24H [facility] Stop: 10/11/20 13:59 Last Admin: 10/11/20 13:12 Dose: 100 mls/hr Documented by: Magnesium Sulfate 2 gm/ Premix 50 mls @ 25 mls/hr IV ONETIME ONE Stop: 10/08/20 08:59 Last Admin: 10/08/20 08:35 Dose: 25 mls/hr Documented by: Ketorolac Tromethamine (Ketorolac 30 Mg/Ml Sdv) 30 mg IVPUSH ONETIME ONE Stop: 10/07/20 07:50 Last Admin: 10/07/20 08:24 Dose: 30 mg Documented by: Metoclopramide HCl (Metoclopramide 10 Mg/2 Ml Sdv) 10 mg IVPUSH ONETIME ONE Stop: 10/07/20 07:48 Last Admin: 10/07/20 08:22 Dose: 10 mg Documented by: Metoprolol Succinate (Metoprolol Succinate 25 Mg Tab.Er) [facility] Admin: 10/09/20 08:08 Dose: Not Given Documented by: Non-Formulary Medication (L.Acidoph,Paracasei, B.Lactis [Probiotic]) 1 each PO DAILY [facility]
== END 2020-10-12 13:09 | disposition home or self-care (01) | DRG 177 ==
LOC: JD.ED 06:56 → JD.MS 10:53
PROVIDERS: ADMIT Internal Medicine; ATTEND Internal Medicine
PROC: XW033E5 Introduction of Remdesivir Anti-infective into Peripheral Vein, Percutaneous Approach, New Technology Group 5 (ICD-10-PCS; principal; 2020-10-07)
DX: U07.1 COVID-19 (principal); J96.01 Acute respiratory failure with hypoxia; R09.02 Hypoxemia; J12.82 Pneumonia due to coronavirus disease 2019; G44.89 Other headache syndrome; M19.90 Unspecified osteoarthritis, unspecified site; G89.29 Other chronic pain; I10 Essential (primary) hypertension; Z96.659 Presence of unspecified artificial knee joint; Z87.442 Personal history of urinary calculi; Z79.899 Other long term (current) drug therapy; Z86.16 Personal history of COVID-19; Z90.49 Acquired absence of other specified parts of digestive tract; R61 Generalized hyperhidrosis; J96.00 Acute respiratory failure, unspecified whether with hypoxia or hypercapnia
CPT/HCPCS: 36415; 70450; 71045; 80053; 82728; 83605; 83615; 84484; 85025; 85379; 85610; 85730; 86140; 87040 ×2; 93005; 96374; 96375; 99285; J1200; J1885; J2765; J7030; 83735; 93010; 94640; 94667; 94668; 94762; 99222; 99233; 99238; A9270-GY; J1100; J1170; J1650; J3475; J7050; J8540

== ENCOUNTER 2021-06-21 10:52 | Day surgery (SDC) | payer MEDICARE, OTHER ==
[~2021-06-21 10:52] MED LIST: Bupivacaine 0.25%/EPINEPHrine 1:200,000 30 ML SDV ONE; Lactated Ringers 1,000 ML IV SCH; Lidocaine 1% 4 ML ONE; Lidocaine 1%/Sod Bicarbonate in NS 8.4% 1 ML Syringe IDERM PRN; Midazolam 1 MG/ML 2 ML SDV ONE; Propofol 200 MG/20 ML SDV ONE; Sodium Chloride 0.9% 10 ML Syringe FLUSH PRN; Sodium Chloride 0.9% 10 ML Syringe FLUSH SCH; ceFAZolin 1 GM Vial ONE; fentaNYL 100 MCG/2 ML SDV ONE
[2021-06-21] MEDS ORDERED: Triamcinolone Acetonide 40 MG/ML 1 ML SDV ONE (11:13)
[2021-06-21] MEDS ORDERED: Bupivacaine 0.25% 10 ML SDV ONE (11:14)
[2021-06-21] MEDS: Bupivacaine 0.25% 10 ML SDV ONE ×2 (12:57→13:35)
[2021-06-21] MEDS ORDERED: ePHEDrine 50 MG/ML SDV ONE (12:58)
[2021-06-21] MEDS ORDERED: fentaNYL 100 MCG/2 ML SDV ONE (12:59)
[2021-06-21] MEDS ORDERED: Lactated Ringers 1,000 ML ONE (13:08)
[2021-06-21] MEDS ORDERED: Ketorolac 30 MG/ML SDV ONE (13:24)
[2021-06-21] MEDS ORDERED: Ondansetron 4 MG/2 ML SDV ONE (13:24)
[2021-06-21] MEDS ORDERED: fentaNYL 100 MCG/2 ML SDV IVPUSH PRN (13:58)
[2021-06-21] MEDS ORDERED: HYDROmorphone 0.5 MG/0.5 ML Syringe IVPUSH PRN (13:58)
[2021-06-21] MEDS ORDERED: Ondansetron 4 MG/2 ML SDV IVPUSH PRN (13:58)
== END 2021-06-21 15:00 | disposition home or self-care (01) ==
LOC: JD.SDS 10:52
PROVIDERS: ATTEND Orthopaedic Surgery
DX: M18.0 Bilateral primary osteoarthritis of first carpometacarpal joints (principal); I10 Essential (primary) hypertension; G47.33 Obstructive sleep apnea (adult) (pediatric); G25.81 Restless legs syndrome; G62.9 Polyneuropathy, unspecified; G43.909 Migraine, unspecified, not intractable, without status migrainosus; Z88.5 Allergy status to narcotic agent; Z79.899 Other long term (current) drug therapy; Z98.890 Other specified postprocedural states
CPT/HCPCS: 20605; 25447; 76000; C1713; J0690; J1885; J2250; J2405; J2704; J3010; J3301; J3490; J7120; 01810; 99100

== ENCOUNTER 2021-10-25 18:47 | Inpatient (IN) | payer MEDICARE, OTHER ==
[2021-10-25] MEDS ORDERED: Acetaminophen 325 MG Tab PO PRN (19:05)
[2021-10-25] MEDS ORDERED: Ondansetron 4 MG Tab.DIS PO PRN (19:05)
[2021-10-25] MEDS ORDERED: Sodium Chloride 0.9% 10 ML Syringe FLUSH PRN (19:05)
[2021-10-25] MEDS ORDERED: Ondansetron 4 MG/2 ML SDV IV PRN (19:05)
[2021-10-25] MEDS ORDERED: Docusate Sodium 100 MG Cap PO PRN (19:05)
[2021-10-25] MEDS ORDERED: Melatonin 3 MG Tab PO PRN (19:07)
[2021-10-25] MEDS: Apixaban 5 MG Tab PO SCH (20:20)
[2021-10-25] MEDS: Sodium Chloride 0.9% 10 ML Syringe FLUSH SCH (20:22)
[2021-10-25] MEDS ORDERED: Gabapentin 300 MG Cap PO SCH (21:00)
[2021-10-25] MEDS ORDERED: Pramipexole 0.5 MG Tab PO SCH (21:00)
[2021-10-25] MEDS: Diltiazem IR 60 MG Tab PO SCH (21:54)
[2021-10-26] MEDS: Diltiazem IR 60 MG Tab PO SCH (06:05)
[2021-10-26] MEDS ORDERED: Metoprolol Succinate 25 MG Tab.ER PO SCH (08:00)
[2021-10-26] MEDS: Apixaban 5 MG Tab PO SCH (08:59)
[2021-10-26] MEDS: Sodium Chloride 0.9% 10 ML Syringe FLUSH SCH (10:52)
[2021-10-26] MEDS ORDERED: Gabapentin 600 MG Tab PO SCH (21:00)
== END 2021-10-26 10:46 | disposition home or self-care (01) | DRG 310 ==
LOC: JD.ICU 18:47
PROVIDERS: ADMIT Hospitalist; ATTEND Hospitalist
DX: I48.91 Unspecified atrial fibrillation (principal); I10 Essential (primary) hypertension; G89.29 Other chronic pain; Z96.659 Presence of unspecified artificial knee joint; Z88.5 Allergy status to narcotic agent; Z79.899 Other long term (current) drug therapy; Z86.16 Personal history of COVID-19; Z87.442 Personal history of urinary calculi; Z87.19 Personal history of other diseases of the digestive system; Z79.01 Long term (current) use of anticoagulants; Z87.81 Personal history of (healed) traumatic fracture; Z86.14 Personal history of Methicillin resistant Staphylococcus aureus infection; Z90.49 Acquired absence of other specified parts of digestive tract
CPT/HCPCS: 36415; 80048; 83735; 85025; 93005; A9270-GY; J3490